=== PATIENT | male | born 1960 | race Caucasian/White ===

== ENCOUNTER 2020-03-14 18:23 | Outpatient (REF) | payer MEDICARE, MEDICAID, SELFPAY ==
--- NOTE | 2020-03-14 | MR_ITS ---
MRI BRAIN WITHOUT IV CONTRAST CLINICAL INFORMATION: Dementia with behavioral problems/disturbance. COMPARISON: Head CT 06/16/2007. TECHNIQUE: Multiplanar multisequence MR imaging of the brain was obtained without IV contrast. FINDINGS: There is no hydrocephalus, extra-axial surface collection, or herniation. No parenchymal signal abnormality. There is global cerebral volume loss. The major flow voids at the skull base are preserved. There is no acute infarct on diffusion-weighted imaging. There is no intracranial hemorrhage on the gradient recalled echo acquisition. The midline structures are normal. The cerebellar tonsils are normally positioned. The cerebellum and brainstem are normal. The craniocervical junction is normal. Osseous marrow signal intensity is homogenous. The visualized soft tissues are unremarkable. MR/MR head/brain wo con IMPRESSION: - No acute intracranial findings. - There is global cerebral volume loss.
== END 2020-03-14 18:24 | disposition home or self-care (01) ==
LOC: HO.MRI 18:23
PROVIDERS: Visit Provider Psychiatry & Neurology Neurology
DX: F03.91 Unspecified dementia, unspecified severity, with behavioral disturbance (principal)
CPT/HCPCS: 70551

== ENCOUNTER → 2021-09-16 09:43 | Outpatient (BNVA) | payer MEDICARE, MEDICAID, SELFPAY | PROVIDERS: PCP Internal Medicine; Visit Provider Nurse Practitioner Family | DX: G47.33 Obstructive sleep apnea (adult) (pediatric) (principal); R25.9 Unspecified abnormal involuntary movements; R51.9 Headache, unspecified; H93.11 Tinnitus, right ear; Z79.899 Other long term (current) drug therapy; Z99.89 Dependence on other enabling machines and devices | CPT/HCPCS: 99212 ==

== ENCOUNTER 2023-07-02 11:49 | Outpatient (AMB) | payer MEDICARE, MEDICAID, SELFPAY ==
--- NOTE | 2023-07-02 11:50 | MHC.OFFVIS ---
Intake Intake Visit Reasons: New prob-R/OParkinson-[facility] prog [phone] Allergies No Known Allergies [No Known Allergies*] Allergy (Unverified 09/16/21 09:49) Medication List - Last Reconciled 07/02/23 by DAVID Olmedo acetaminophen (Tylenol) 325 mg PO QID PRN albuterol sulfate 90 mcg/actuation 2 puffs inhalation Q6H PRN albuterol sulfate 90 mcg/actuation (ProAir HFA) 1 inh inhalation QID amlodipine 10 mg PO DAILY apixaban (Eliquis) 5 mg PO BID benztropine 0.5 mg PO BID 28 days budesonide-formoterol 160-4.5 mcg/actuation (Symbicort) 1 inh inhalation BID diclofenac potassium 50 mg PO BID fluticasone furoate-vilanterol 50-25 mcg/dose (Breo Ellipta) inhalation lisinopril 20 mg PO DAILY omeprazole 20 mg PO DAILY potassium chloride ER 20 mEq PO DAILY propranolol 10 mg PO BID 28 days risperidone (Risperdal) 1 mg PO BEDTIME sertraline 100 mg PO DAILY sertraline 50 mg PO DAILY HPI HPI Comments History of Present Illness Details 63-yr-old male presents for f/u televideo visit via [employer]. Patient accompanied by his technology applications teacher. Pt was last seen in September 2021. Pt denies any significant interval medical changes. Pt was having an increase in falls a few months ago, but is now doing better. Feels his movements are more smooth. He is currently doing PT, which he feels is helping. He does usually walk with a walker. His last fall, was 3 months ago- he states he hit a pothole while walking, he scraped his left elbow but no other injuries. Another fall- was in the kitchen- he was going too fast - shaking too much in his arms and hands, and just fell. The walker was on the side of him. He denied LOC or lightheadedness or dizziness. Another fall occurred in front of the house- was walking down the ramp w/ his wheeled walker, and started walking down too fast, and then came off the sidewalk, and fell. He thinks his feet were going to fast as he came down the ramp and transitioned to the side walk- this has not happened recently. [facility] Medical History (Updated 07/12/23 @ 14:41 by DAVID Olmedo) JACQUELYN on CPAP Family History Mother Cancer Social History Alcohol intake: never Patient Tobacco Use Status: Never used Tobacco Physical Exam Const General: cooperative and no acute distress Resp Effort & Inspection: normal respiratory effort and able to speak in complete sentences Neuro Other: Patient alert and oriented, responding appropriately to simple indirect questions. 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 Code(s): R25.9 - Unspecified abnormal involuntary movements (2) Falls: Code(s): W19.XXXA - Unspecified fall, initial encounter Plan Continue physical therapy. Continue using walker. Continue propranolol 10 mg b.i.d.. Continue Cogentin 0.5 mg b.i.d.. Future considerations: Carbidopa levodopa trial, [facility] Follow-up in 4 months in-person or sooner as needed. Telehealth Telehealth Location of provider rendering services: practice address Location of patient: address on file Patient Identification confirmed using: Name, : Yes Telehealth method: video Patient verbally consented to treatment: Yes Patient verbally consented to billing insurance company: Yes Patient informed of any privacy concerns related to visit: Yes Minutes spent on Phone/Video with Pt.: 22 Coding Level of Care Code Tele Est Pt Level 4 (53844) Diagnoses Abnormal involuntary movement R25.9 Falls W19.XXXA
== END 2023-07-02 14:40 | disposition home or self-care (01) ==
LOC: HO.HSMS 11:49
PROVIDERS: PCP Internal Medicine; Visit Provider Nurse Practitioner Family
DX: R25.9 Unspecified abnormal involuntary movements (principal); R29.6 Repeated falls
CPT/HCPCS: 99214

== ENCOUNTER → 2023-07-02 11:49 | Outpatient (BNVA) | payer MEDICARE, MEDICAID, SELFPAY | PROVIDERS: PCP Internal Medicine; Visit Provider Nurse Practitioner Family ==

== ENCOUNTER 2024-07-05 09:53 | Outpatient (REF) | payer MEDICARE, MEDICAID, SELFPAY ==
--- OUTSIDE RECORDS SUMMARY | 2024-07-05 12:14 | XMS_ITS | Clinical Summary ---
Author Organization [facility] Address [address] [place] [address] Phone Care Team Providers Care Outside Machinist Apprentice Name Role Phone Donal Jackson MD Primary Care Provider [phone] Encounters Date Type Department Care Team Description 06/02/2024 Telephone Thoracic Surgery - [place] [address] [facility] [address] [place] [phone] Jeannette Baird MA Chest CT (Patient's program director/music director called asking that patient have Chest CT and follow up in the office, he is lost to follow since 2022, ) from Last 3 Months Surgical History Surgery Date Site/Laterality Comments OTHER SURGICAL HISTORY 09/09/2018 Right PROCEDURE: [place] RMVL LUNG OTHER/THAN PNUMEC COMPLETION PNUMEC; COMMENT: [...] Documents on File Type Date Recorded 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
--- OUTSIDE RECORDS SUMMARY | 2024-07-05 12:14 | XMS_ITS | Patient Health Record ---
Author Organization [facility] Address [address] [place] [address] Care Team Providers Care Manager Manufacturing Name Role Phone DANIELITO PIKE Primary Care Provider Allergies No Known Allergies Reason For Referral No Information Medications Medication SIG (Take, Route, Frequency, Duration) Notes Start Date End Date Status ProAir HFA 108 (90 Base) MCG/ACT Inhalation Every 6 hours for 30 INHALE 2 PUFFS BY MOUTH EVERY 6 HOURS NEEDED 05/03/2012 Not-Taking Benadryl Allergy 25 MG 1 tablet Orally Once a day PRN FOR ITCHING 11/06/2021 Not-Taking Pantoprazole Sodium 40 MG TAKE 1 TABLET BY MOUTH ONCE DAILY IN THE MORNING. Active Lisinopril-hydroCHLOR Othiazide 20-12.5 MG TAKE 1 TABLET BY MOUTH ONCE DAILY IN THE MORNING. Active Potassium Chloride Elena ER 20 MEQ TAKE (1) TABLET BY MOUTH TWICE A DAY. Not-Taking Potassium Chloride ER 10 MEQ 1 tablet with food Orally Once a day for 90 Not-Taking Tamsulosin HCl 0.4 MG 1 capsule 30 minutes after the same meal each day Orally Once a day for 30 day(s) Active risperiDONE 0.5 MG 1 TAB Orally TAKE W/ 1MG AT BEDTIME ONCE A DAY TAKE W/ 1MG Active Symbicort 160-4.5 MCG/ACT 2 puffs Inhalation Twice a day Active Sertraline HCl 50 MG 1 tablet Orally TAKE Once a day W/ 100MG TAB TAKE W/ 100MG Active Dandruff Shampoo 1 % [address] of regular shampoo Externally 4X a Week Not-Taking Benztropine Mesylate 0.5 MG 1 tab orally Twice A Day Active Ventolin HFA 108 (90 Base) MCG/ACT 2 puffs as needed Inhalation every 6 hrs prn Not-Taking Spiriva HandiHaler 18 MCG Inhalation Daily for 30 INHALE CONTENTS OF 1 CAPSULE ONCE DAILY. 09/27/2013 Active Eliquis 5 MG 1 TAB Orally twice daily for 90 days Active Omeprazole 20 MG TAKE ONE CAPSULE BY MOUTH EVERY DAY Orally Not-Taking amLODIPine Besylate 10 MG TAKE 1 TABLET BY MOUTH ONCE DAILY IN THE MORNING. Active risperiDONE 1 MG 1 TAB orally TAKE W/ 0.5MG AT BEDTIME ONCE A DAY TAKE W/ 0.5MG Active Clotrimazole 1 % 1 application Externally Twice a day prn for 30 days Apply Thin Layer PRN Topically To Flarred/Red Vincent Of Body Active Tylenol 8 Hour Arthritis Pain 650 MG 1 TAB Orally EVERY 8 HRS PRN FOR HIP PAIN 05/02/2019 Not-Taking Acetaminophen 325 MG 2 TABS ORALLY TWICE A DAY FOR PAIN for 30 days 12/23/2022 Active Sertraline HCl 50 MG 1 tablet Orally Once a day changes to 50 in hosp, has been taking only 50 since 09/13/20 Not-Taking Desitin 13 % apply thick layer Externally as needed twice a day for reddened pascale-area, if symptoms persist longer than 3 days contact MD Active Phentermine HCl 37.5 MG 1 tablet Orally Once a day for 60 04/19/2018 Not-Taking Tylenol 325 MG 1-2 tabs Orally twice a day as needed for headache, body aches or fever greater than 100 degrees- DO NOT EXCEED 4 TABS DAILY 02/11/2022 Active Diclofenac Sodium 50 MG 1 tablet Orally Twice a day prn Not-Taking Milk of Magnesia 400 MG/5ML 5ML NEEDED Orally USE NEEDED DAILY Active Gabapentin 100 TAKE 3 CAPSULES BY MOUTH THREE TIMES DAILY for 90 Not-Taking Hydrocortisone 1 % 1 application Externally Twice a day PRN 02/11/2022 Active Gabapentin 100 MG 1 capsule Orally Three times a day Not-Taking Robitussin DM 100-10 MG/5ML 10 mL Orally every 4 hrs PRN FOR COUGH for 30 days Notify If Sx's Persist Longer Than 48 Hrs 02/13/2022 Active Ibuprofen 600 MG 1 tablet Orally every 6 hrs Not-Taking Ondansetron 4 MG 1 tablet on the tongue and allow to dissolve Orally every 6 hrs PRN for 30 days Notify MD If Sx's Persist Longer Than 48 Hrs Active Atorvastatin Calcium 20 MG TAKE (1) TABLET BY MOUTH EVERY EVENING. Active Propranolol HCl 10 MG TAKE 1 TABLET BY MOUTH TWICE DAILY take bp twice a day before taking med, if systolic is below 90, hold the med and contact MD. If heart rate is below60, hold and contact MD. Active LORazepam 1 MG 1 tablet at bedtime as needed Orally every 6 hrs PRN 07/15/2018 Not-Taking Ketoconazole 2 % 1 application Externally Twice a day Active Nasacort AQ 55 MCG/ACT Nasal for 0 08/01/2014 Not-Taking Bacitracin 500 UNIT/GM 1 application Externally USE NEEDED Active Gabapentin 300 MG 1 capsule Orally TID for 90 Not-Taking QUEtiapine Fumarate 100 MG 1 tablet Orally Once a day DANIELA CARRILLO, FISH TENDER- DR KINCAID Not-Taking Sertraline HCl 100 MG TAKE 1 TABLET BY MOUTH DAILY for 30 TAKE W/ 50MG Active oxyCODONE-Acetaminoph en 5-325 MG Oral for 0 TAKE 1 TABLET EVERY 4 TO 6 HOURS NEEDED FOR PAIN. 11/24/2013 Not-Taking Immunizations Vaccine Route Administration Date Status Comme nts Influenza (split), 3 yrs and above IM Intramuscular 02/02/[address] CHEN Pneumococcal polysaccharide PPV23 IM Intramuscular 05/18/2006 Administered Tdap IM Intramuscular 02/17/2019 Administered Social History Tobacco Use: Social History Observation [...] Problem Status W/U Status Risk Notes Problem Tinea cruris (415266965) Tinea cruris (B35.6) Active confirmed 06/16/22 Told to keep area dry Use desitin or diaper rash powder. 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) Diabetes mellitus due to underlying condition without complications (E08.9) Active confirmed On no meds Good control 06/11/21 will repeat labs before next appt 12/11/21 last stable, repeat labs today Problem Morbid obesity (disorder) (400343429) Morbid (severe) obesity due to excess calories (E66.01) Active confirmed Gained 8 lbs more since last visit Wants a medicine to curb his apetite Judah try phentermine for 2 months Problem 25067900 Other hyperlipidemia (E78.4) Active confirmed Problem Hyperlipidemia (62480271) Hyperlipidemia, unspecified (E78.5) Active confirmed Problem 48477141 Hypokalemia (E87.6) Active confirmed 07/16/22 Kelly m 3.3 in May Will recheck Has Lisinopril HCTZ Problem Sleep apnea (67524556) Sleep apnea, unspecified (G47.30) Active confirmed Problem Periodic limb movement disorder (237756545) Periodic limb movement disorder (G47.61) Active confirmed Problem 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) Active confirmed Problem Peripheral vascular disease (788663849) Peripheral vascular disease, unspecified (I73.9) Active confirmed Problem Chronic sinusitis (94469139) Chronic sinusitis, unspecified (J32.9) Active confirmed Problem Gastro-esophage al reflux disease without esophagitis (897760428) Gastro-esophageal reflux disease without esophagitis (K21.9) Active confirmed Problem Non-infective enteritis and colitis (362054956) Noninfective gastroenteritis and colitis, unspecified (K52.9) Active confirmed Problem Cough (69922746) Cough (R05) Active confirmed 09/28/20 pt sa ys he has cough sometimes, lung sounds clearm no adventitious sounds. Problem Dysphagia (37262077) Dysphagia, unspecified (R13.10) Active confirmed Problem Hyperglycemia (78354660) Hyperglycemia, unspecified (R73.9) Active confirmed Problem 433310848 Medicare annual wellness visit, subsequent (Z00.00) Active confirmed Problem 777297115 Gastroesophageal reflux disease without esophagitis (K21.9) Active confirmed Problem 910005372 Chronic anticoagulation (Z79.01) Active confirmed Started on Eliquis BID since by Dr Chen Chief Controller Station Dr Canales is working him up for [...] cbc 06/11/21 cbc wnl, continues on eliquis Problem 089979773 Bronchial asthma (J45.909) Active confirmed emphysema with FEV1 45% May 2108 Dr Chen 09/01/22 Has had thoracocentesis in past. Will treat with antibiotics and steroids and if not better will need chest XRay and follow up in ED Problem 38558652 Hyperlipidemia (E78.5) Active confirmed Problem 69202483 Migraine (G43.909) Active confirmed Stable No attac k for a long time Problem 92380186 JACQUELYN on CPAP (G47.33) Active confirmed Not using it in his new location Told he should use it Problem Fatty liver (545677838) Fatty liver (K76.0) Active confirmed Problem 32102890 Major depression , recurrent, chronic (F33.9) Active confirmed Problem 039873857 Thyroid nodule (E04.1) Active confirmed 12/05/[address] [facility] pt asymptomatic, without complaints or problems. Noted again by Dr Gagnon and pt having multiple specialists and complications last few months, will send for thyroid U/S 01/02/21 showed nodules and cysts will send to interventional radiology for biopsy 03/11/21 guided U/S with biopsy for cyst and nodules done . Report of biopsy not in chart. 06/11/21 no report, did note no change in nodules. will call for results 09/11/21 report back benign Problem 50222584 Hyperglycemia (R73.9) Active confirmed Problem 44270642 Essential hypertension (I10) Active confirmed Stable Problem 259957501 Recurrent falls (R29.6) Active confirmed Problem 74889754 Rectal bleed (K62.5) Active confirmed 02/13/22 Probabl y from starining Problem Renal mass (361990371) Renal mass (N28.89) Active confirmed 12/11/21 last appt 10/2021 mild increase, per dr cope will monitor U/s every 6 months Problem 842052207 Obesity (BMI 35.0-39.9 without comorbidity) (E66.9) Active confirmed Problem 213727258 Colon, diverticulosis (K57.30) Active confirmed Problem 27851607 Chronic dermatitis (L30.9) Active confirmed Problem 68921837 Ureteral stricture, left (N13.5) Active confirmed Problem 30117022 Mild mental retardation (F70) Active confirmed Sees Psychiatrist Daniela Carrillo at [address] [place] [address] or [facility] 09/11/[address] Carrillo monthly Problem 69641070 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 pt was hosp 09/13/20 for severe tremors, was noted to high high ammonia levels and given x1 dose of lactulose, US showed hepatomegaly and fatty liver also renal mass. pt has [facility] with neurology and urology coming up. will order CT scan of kidney. will also recheck electrolytes liver panel, and ammonia levels. will refer to hepatology for enlarged liver. 02/13/22 Reviewed hospital records HadCT abdomen and work up was inconclusive for the left LLQ pain which is slip tender Vital are stable Will do a CBC and retic count Problem 076648382 History of obesity (Z86.39) Active confirmed 04/08/23 We ighed 230 lbs Lost weight by portion control Now weighs 182 lbs Problem 73364399 Coarse tremors (G25.2) Active confirmed Has more right arm tremor Sees Dr [...] longer on gabapentin, stopped permanently per neurology Problem 73488911 Moderate dementi a without behavioral disturbance (F03.90) Active confirmed Having sudden memeory issues. Used to remember peopes name , dates , events Unable to do. Will send him for neurological evaluation for reversible causes of dementia. Also on psychiatrc medications. 07/24/20- Saw Dr Murcia 03/06 to have tests done and to have follow up stan[place] after tests, educated medicare sales representative to call and make follow up stan[place] Problem 13040790 Tremors of nervous system (R25.1) Active confirmed 12/13/20 arr wit h significant tremors, per nallely did not take medication until 11 when she got there, throughout [place] tremors improving and upon d.c almost gone Problem 04594663 Bilateral impacted cerumen (H61.23) Active confirmed Told to use debrox drops and come for irrigation Problem 54524797 Parkinson diseas e (G20) Active confirmed 12/22/22 Has tremors of hands, clasp knife rigidity of elbow, small shuffling gait Suspect parkinsonism . Had repeated falls 3 times in a month Will refer to neurologist for evaluation Problem 809848665 Paranoia (F22) Active confirmed Getting more paranoid . Will restart risperdal. On Seroquel 150 mg Problem Acute bronchitis (30411915) Bronchitis with bronchospasm (J20.9) Active confirmed Problem Macular erythematous rash (L53.8) Active confirmed 11/05/21 Has bee n resolving Mild trace seen on right upper arm Left thigh is clear No treatment needed Told to use Benadryl if there is itching or as a trial Problem 844381510 Swelling of left ankle joint (M25.472) Active confirmed From a fall 2 weeks ago. 04/09/18. 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 Had biopsy by Verenice Peacock Had Davinci RLL and middle lobe bilobectomy done by Dr Joslyn Gagnon on 09/10/18 at [facility] Problem 019412133 Hx of pulmonary embolus (Z86.711) Active confirmed Problem 930177324 S/P thoracentesi s (Z98.890) Active confirmed Has residual fluid left Will be getting it removed by Dr Chen Problem 71224627 Single subsegmental pulmonary embolism without acute cor pulmonale (I26.93) Active confirmed Diagnosed by Dr Erickson in January 2019 Problem 691158175882 Acute deep vein thrombosis (DVT) of calf muscle vein of left lower extremity (I82.462) Active confirmed DVT confirmed b u US ofleft leg Involve gastrocnemius vein greater amando 5 cm. Put on Eliqius for a month There is no trigger cause for the DVT He has hx of endobronchiol carcinoid tumor and underwent middle bronchus lobectomy last year This could be a paraneoplastic syndrome I will refer him to see his belt cleaner to decide how long he should be on Eliquis and wherher he warrants further investigation for the recurrence of his tumor. Problem Gait difficulty (41971886) Gait difficulty (R26.9) Active confirmed ongoing, new small animal caretaker notices deconditioned. will refer to PT 12/11/21 doing well, uses cane, no falls, active at shelter 08/12 care Plan Of Treatment Pending Test Test Name Order Date Hemoglobin A1c 06/04/2022 Hemoglobin A1c 04/08/2023 Urinalysis, Complete 06/04/2022 Urinalysis, Complete 12/22/2022 Lipid Panel 06/04/2022 Lipid Panel 04/08/2023 Lipid Panel 10/07/2022 Chem-Comprehensive 12/22/2022 Chem-Comprehensive 10/07/2022 Chem-Comprehensive 06/04/2022 Chem-Comprehensive 04/08/2023 Urine Culture and Sensitivity 12/22/2022 Chem 7 (BUN, Cr, Lytes, Glu) 07/16/2022 Ultrasound : Thyroid Sonography B-Scan 0 12/05/2020 LIVER PANEL 09/28/2020 xray LS spine 06/04/2022 HgA1C 10/07/2022 Future Test Test Name Order Date Urinalysis, Complete 12/06/2015 Lipid Panel 12/06/2015 CBC 12/06/2015 Chem-Comprehensive 12/06/2015 Urinalysis, Complete 06/01/2016 Lipid Panel 06/01/2016 CBC 06/01/2016 Chem-Comprehensive 06/01/2016 Hemoglobin A1c 12/29/2017 Lipid Panel 12/29/2017 CBC WITH AUTO DIFF 12/29/2017 COMPREHENSIVE METABOLIC PANEL 12/29/2017 MICROALB/CREAT RATIO, RANDOM 12/29/2017 MICROALB/CREAT RATIO, RANDOM 04/06/2018 CBC WITH AUTO DIFF 01/16/2022 Chem-Comprehensive 03/04/2023 CBC 03/04/2023 MICROALB/CREAT RATIO, RANDOM 03/04/2023 HEMOGLOBIN A1C 03/04/2023 Insurance Providers Payer Name Payer Address Payer Phone Subscriber Number Group Number Insured Name Patient Relationship to Insured Coverage Start Date Coverage End Date Medicare of [facility] abisai Yair [address] [place] [phone] [id number] Nicolas Becker Self - patient is the insured Medicaid of [facility] [address] [place] [address] [phone] [id number] Nicolas Becker Self - patient is the insured Medical (General) History Medical History History ICD Code COPD with lung nodule in Rig ht lower lung Had CT scan Seen by Dr Chen and bronchoscopy Lower extremity neuropathy severe On mary apentin GERD Had EGD by DR Castro on 06/18/[address] Castro did col onoscopy on 06/18/18 No polyps Obstructive Sleep Apnea Has CPAP Non com pliant Involuntary movement, multif actorial, neuroleptic exposure Put on Cogentin 0.5 mg 2 tab in am and 1 pm in past Obesity weighs 253 lbs. Left Kidney obstructive uropathy Has a s tent put in by Dr Coep Right lower lobe lobectomy for carcinoid timor 2018 Exophytic right renal mass f ound incidentally on MRI. saw Dr Canales , oncologist on 01/23/21 He opined urology consult Saw Dr Cope 02/05/21 Offered Partial nephrectomy versus watching FU in 3 months Pulmonary Embolism On Eliquis since 2019 Other alteration of consciousness 780.09 Surgical History Surgery Date(Month/Year) Stent panted in Left kidney Dr Anatoliy Johnson ees PA Carla Santos 2017 Lap Cholcystectomy 2013 Resection of carcinoid tumor from right lowe bronchus 2019
[2024-07-05 17:58] LABS: Appearance Urine Clear; Color Urine Yellow; Glucose Urine UA Negative (Negative); Leukocyte Esterase Urine Negative (Negative); Nitrite Urine Negative (Negative); PH 5.5 (5.0-9.0); Urine Blood Negative (Negative); Urine Ketones Negative (Negative); Urine Protein Negative (Neg-Trace)
== END 2024-07-05 09:54 | disposition home or self-care (01) ==
LOC: HO.HKASLDS 09:53
PROVIDERS: PCP Internal Medicine; Visit Provider Nurse Practitioner Family
DX: D64.9 Anemia, unspecified (principal); R32 Unspecified urinary incontinence; R82.998 Other abnormal findings in urine; R25.9 Unspecified abnormal involuntary movements; R51.9 Headache, unspecified; H53.2 Diplopia; R63.4 Abnormal weight loss; R06.02 Shortness of breath
CPT/HCPCS: 81003; 99212

== ENCOUNTER 2024-07-05 09:53 | Outpatient (AMB) | payer MEDICARE, MEDICAID, SELFPAY ==
[2024-07-05 10:02] VITALS: BP 110/80; BMI 26.5
--- NOTE | 2024-07-05 10:02 | MHC.OFFVIS ---
Vital Signs 07/05/24 10:02 Height 5 ft 8 in Weight 174 lb 6 oz BMI 26.5 BP 110/80 Intake Visit Reasons: f/u Bulk Station Agent Required: No Allergies No Known Allergies [No Known Allergies*] Allergy (Verified 07/05/24 10:11) Medication List - Last Reconciled 07/05/24 by DAVID Olmedo acetaminophen (Tylenol) 325 mg PO QID PRN albuterol sulfate 90 mcg/actuation 2 puffs inhalation Q6H PRN albuterol sulfate 90 mcg/actuation (ProAir HFA) 1 inh inhalation QID amlodipine 10 mg PO DAILY apixaban (Eliquis) 5 mg PO BID benztropine 0.5 mg PO BID 28 days budesonide-formoterol 160-4.5 mcg/actuation (Symbicort) 1 inh inhalation BID clotrimazole-betamethasone 1-0.05 % 1 appl topical BID diclofenac potassium 50 mg PO BID fluticasone furoate-vilanterol 50-25 mcg/dose (Breo Ellipta) inhalation hydrocortisone 2.5% 1 appl topical BID PRN lisinopril 20 mg PO DAILY omeprazole 20 mg PO DAILY ondansetron HCl 4 mg PO Q8H pantoprazole DR 40 mg PO DAILY potassium chloride ER 20 mEq PO DAILY propranolol 10 mg PO BID 28 days risperidone (Risperdal) 1 mg PO BEDTIME sertraline 50 mg PO DAILY sertraline 50 mg PO DAILY sertraline 100 mg PO DAILY tamsulosin 0.4 mg PO BEDTIME zinc oxide 13% (Desitin Daily Defense) 1 appl topical BID-QID PRN HPI Comments Details: 64-yr-old male presents for f/u of movement d/o. Patient accompanied by his long-term staff, and long-term nurse joints via phone. Pt was last seen in Jun 2023. Patient's long-term staff member reports the patient has several times in the last few years. They stated they did not have patient's full medical history- were unaware of who many of his healthcare providers are. They are unaware of any significant interval medical history changes. However, they report that he has had an unintentional weight loss despite having a good appetite and eating well. Per our records, patient has lost 60lbs in past 2 years. He is having more SOB on exertion- which is taking him longer to recover from. They are unsure when patient last saw his PCP. Patient states he has not seen Dr. Canales in a long time- in his not sure if he was supposed to be having follow-up are not He can be shaky at times, more so when focusing on something or trying to pick something up. The tremor does not interfere with his ability to eat or do his ADLs. Denies any recent falls. He feels his gait is stable/steady when he uses his walker. They also report the patient is having increased forgetfulness, both with short and long-term memory. Patient endorses this as well. He states he is having frequent headaches- almost daily, described as a pain. He states this is associated with double vision. Denies associated light sensitivity or sound sensitivity. Uses Tylenol, which does help. Endorses liu nocturnal urinary incontinence, and ?foamy urine ?. He denies fevers, night sweats, PFSH Medical History (Updated 07/05/24 @ 11:03 by DAVID Olmedo) History of lung cancer Anemia JACQUELYN on CPAP Family History Mother Cancer Social History Alcohol intake: never Patient Tobacco Use Status: Never used Tobacco Physical Exam Vital Signs: Last Vital Signs BP 110/80 07/05/24 10:02 BMI result Body Mass Index 26.5 Const General: cooperative and no acute distress Resp Effort & Inspection: normal respiratory effort and able to speak in complete sentences Neuro Other: Cognition- A&O, developmental delay, responds appropriately, some STM and LTM lapses. For instance, when asked where his PCP was located he stated ?[id number]?- which is the correct building number 4 his PCP, however patient could not elaborate further. BUE mild postural and kinetic tremor. Fine finger movements- BUE decreased more so on left BUE rigidity. Foot taps- BUE decreased more so on left Gait- stands easily, wide based, short steps, steady w/ 4 wheeled walker. 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 Code(s): R25.9 - Unspecified abnormal involuntary movements Category: Medical (2) Headache: Code(s): R51.9 - Headache, unspecified Category: Medical (3) Urinary incontinence: Code(s): R32 - Unspecified urinary incontinence Category: Medical (4) Diplopia: Code(s): H53.2 - Diplopia Category: Medical (5) Unintentional weight loss: Code(s): R63.4 - Abnormal weight loss Category: Medical (6) SOBOE (shortness of breath on exertion): Code(s): R06.02 - Shortness of breath Category: Medical Plan For unintentional weight loss, frequent headache, new report of diplopia, and cognitive difficulties: List of patient's current medical care team shared with long-term staff. prison staff will make follow-up appointment with patient's PCP. We will request follow-up with Dr. Canales. Check labs for common etiologies Brain MRI with and without contrast to assess for secondary etiologies. Start riboflavin 400 mg q.a.m. and magnesium oxide 400 mg q.h.s. for headache prevention. May continue Tylenol 650-1000 mg every 4-6 hours as needed. Avoid NSAIDs due to Eliquis use. For tremor, gait difficulties, and history of falls: Continue using walker. Continue propranolol 10 mg b.i.d.. Continue Cogentin 0.5 mg b.i.d.. Future considerations: Carbidopa levodopa trial, Maryjo Will follow-up upon review of above and patient to follow-up in clinic in 6 months or sooner prn. Orders: Orders Complete Blood Count Auto Diff Today D64.9 - Anemia, unspecified, H53.2 - Diplopia, R32 - Unspecified urinary incontinence, R41.89 - Other symptoms and signs involving cognitive functions and awareness, R51.9 - Headache, unspecified, W19.XXXA - Unspecified fall, initial encounter Comprehensive Met. Panel Today D64.9 - Anemia, unspecified, H53.2 - Diplopia, R32 - Unspecified urinary incontinence, R41.89 - Other symptoms and signs involving cognitive functions and awareness, R51.9 - Headache, unspecified, W19.XXXA - Unspecified fall, initial encounter Vitamin B12 and Folate Today D64.9 - Anemia, unspecified, H53.2 - Diplopia, R32 - Unspecified urinary incontinence, R41.89 - Other symptoms and signs involving cognitive functions and awareness, R51.9 - Headache, unspecified, W19.XXXA - Unspecified fall, initial encounter Homocysteine Today D64.9 - Anemia, unspecified, H53.2 - Diplopia, R32 - Unspecified urinary incontinence, R41.89 - Other symptoms and signs involving cognitive functions and awareness, R51.9 - Headache, unspecified, W19.XXXA - Unspecified fall, initial encounter Lyme IgG/IgM w/reflex to WB Today D64.9 - Anemia, unspecified, H53.2 - Diplopia, R32 - Unspecified urinary incontinence, R41.89 - Other symptoms and signs involving cognitive functions and awareness, R51.9 - Headache, unspecified, W19.XXXA - Unspecified fall, initial encounter Erythrocyte Sedimentation Rate Today D64.9 - Anemia, unspecified, H53.2 - Diplopia, R32 - Unspecified urinary incontinence, R41.89 - Other symptoms and signs involving cognitive functions and awareness, R51.9 - Headache, unspecified, W19.XXXA - Unspecified fall, initial encounter UA CC w/rflx Micro + Cult Today R32 - Unspecified urinary incontinence, R82.998 - Other abnormal findings in urine Methylmalonic Acid Today D64.9 - Anemia, unspecified, H53.2 - Diplopia, R32 - Unspecified urinary incontinence, R41.89 - Other symptoms and signs involving cognitive functions and awareness, R51.9 - Headache, unspecified, W19.XXXA - Unspecified fall, initial encounter Syphilis Screen Today D64.9 - Anemia, unspecified, H53.2 - Diplopia, R32 - Unspecified urinary incontinence, R41.89 - Other symptoms and signs involving cognitive functions and awareness, R51.9 - Headache, unspecified, W19.XXXA - Unspecified fall, initial encounter TSH reflex Free T4 Today D64.9 - Anemia, unspecified, H53.2 - Diplopia, R32 - Unspecified urinary incontinence, R41.89 - Other symptoms and signs involving cognitive functions and awareness, R51.9 - Headache, unspecified, W19.XXXA - Unspecified fall, initial encounter Hemoglobin A1c Today D64.9 - Anemia, unspecified, H53.2 - Diplopia, R32 - Unspecified urinary incontinence, R41.89 - Other symptoms and signs involving cognitive functions and awareness, R51.9 - Headache, unspecified, W19.XXXA - Unspecified fall, initial encounter CRP High Sensitivity Today D64.9 - Anemia, unspecified, H53.2 - Diplopia, R32 - Unspecified urinary incontinence, R41.89 - Other symptoms and signs involving cognitive functions and awareness, R51.9 - Headache, unspecified, W19.XXXA - Unspecified fall, initial encounter MR head/brain wo/w con Today H53.2 - Diplopia, R32 - Unspecified urinary incontinence, R51.9 - Headache, unspecified, Z85.118 - Personal history of other malignant neoplasm of bronchus and lung Referrals Hematology & Oncology Referral R06.02 - Shortness of breath, R63.4 - Abnormal weight loss, Z85.118 - Personal history of other malignant neoplasm of bronchus and lung Medications: New magnesium oxide may hold for loose stools 400 mg PO BEDTIME 30 tabs 6RF 30 days riboflavin (vitamin B2) 400 mg PO DAILY 30 tabs 6RF 30 days Coding Level of Care Code Est Pt Level 4 (14957) Diagnoses Abnormal involuntary movement R25.9 Headache R51.9 Urinary incontinence R32 Diplopia H53.2 Unintentional weight loss R63.4 SOBOE (shortness of breath on exertion) R06.02
--- OUTSIDE RECORDS SUMMARY | 2024-07-05 10:38 | XMS_ITS ---
Author Organization [facility] Address [address] [place] [address] Care Team Providers Care Balancing Machine Set Up Worker Name Role Phone DONAL JACKSON Primary Care Provider Allergies No Known Allergies Results Component Value Reference Range Notes CBC Reviewed date:04/08/2023 03:39:31 PM Interpretation: Performing Lab: Notes/Report: Original Ordering Provider: DONAL JACKSON MD [employer], a member of [address] [address] Fitter Machinist - Deana Castro MD WBC 5.7 4.8-10.8 x10-3/uL RBC 4.3 4.5-5.5 x10-6/uL HEMOGLOBIN 12.9 13.5-17.5 g/dL HEMATOCRIT 39.9 42-54 % MCV 93.4 79-98 fL MCH 30.2 27-32 pg MCHC 32.3 32-37 g/dL RDW 13.8 11-15 % PLT COUNT 180 130-400 x10-3/uL MEAN PLATELET VOLUME 10.0 7-11 fL NRBC % AUTO 0.0 <1 % NRBC # AUTO 0.00 <0.1 x10-3/uL MICROALB/CREAT RATIO, RANDOM Reviewed date:04/08/2023 06:08:10 PM Interpretation: Performing Lab: Notes/Report: Original Ordering Provider: DONAL JACKSON MD [employer], a member of [address] [address] Fitter Machinist - Deana Castro MD MICROALBUMIN, RANDOM 20.2 0.0-29.0 mg/L MICROALB/CRE RATIO RANDOM 15.5 0.0-30.0 mg/G CREATININE, RANDOM URINE 130 REASON FOR VISIT 3 Month Follow-Up:, Last Labs:, EKG Needed @ Next Annual Visit Medications Medication SIG (Take, Route, Frequency, Duration) Notes Start Date End Date Status Dandruff Shampoo 1 % [address] of regular shampoo Externally 4X a Week Not-Taking Ventolin HFA 108 (90 Base) MCG/ACT 2 puffs as needed Inhalation every 6 hrs prn Not-Taking Omeprazole 20 MG TAKE ONE CAPSULE BY MOUTH EVERY DAY Orally Not-Taking Tylenol 8 Hour Arthritis Pain 650 MG 1 TAB Orally EVERY 8 HRS PRN FOR HIP PAIN 05/02/2019 Not-Taking Sertraline HCl 50 MG 1 tablet Orally Once a day changes to 50 in hosp, has been taking only 50 since 09/13/20 Not-Taking Phentermine HCl 37.5 MG 1 tablet Orally Once a day for 60 04/19/2018 Not-Taking Diclofenac Sodium 50 MG 1 tablet Orally Twice a day prn Not-Taking Gabapentin 100 TAKE 3 CAPSULES BY MOUTH THREE TIMES DAILY for 90 Not-Taking Gabapentin 100 MG 1 capsule Orally Three times a day Not-Taking Ibuprofen 600 MG 1 tablet Orally every 6 hrs Not-Taking LORazepam 1 MG 1 tablet at bedtime as needed Orally every 6 hrs PRN 07/15/2018 Not-Taking Nasacort AQ 55 MCG/ACT Nasal for 0 08/01/2014 Not-Taking Gabapentin 300 MG 1 capsule Orally TID for 90 Not-Taking QUEtiapine Fumarate 100 MG 1 tablet Orally Once a day DANIELA CARRILLO LUNCHROOM MONITOR- DR KINCAID Not-Taking oxyCODONE-Acetaminoph en 5-325 MG Oral for 0 TAKE 1 TABLET EVERY 4 TO 6 HOURS NEEDED FOR PAIN. 11/24/2013 Not-Taking ProAir HFA 108 (90 Base) MCG/ACT Inhalation Every 6 hours for 30 INHALE 2 PUFFS BY MOUTH EVERY 6 HOURS NEEDED 05/03/2012 Not-Taking Benadryl Allergy 25 MG 1 tablet Orally Once a day PRN FOR ITCHING 11/06/2021 Not-Taking Lisinopril-hydroCHLOR Othiazide 20-12.5 MG TAKE 1 TABLET BY MOUTH ONCE DAILY IN THE MORNING. Active Potassium Chloride Elena ER 20 MEQ TAKE (1) TABLET BY MOUTH TWICE A DAY. Not-Taking Potassium Chloride ER 10 MEQ 1 tablet with food Orally Once a day for 90 Not-Taking Pantoprazole Sodium 40 MG TAKE 1 TABLET BY MOUTH ONCE DAILY IN THE MORNING. Active Propranolol HCl 10 MG TAKE 1 TABLET BY MOUTH TWICE DAILY take bp twice a day before taking med, if systolic is below 90, hold the med and contact MD. If heart rate is below 60, hold and contact MD. Active amLODIPine Besylate 10 MG TAKE 1 TABLET BY MOUTH ONCE DAILY IN THE MORNING. Active Clotrimazole 1 % 1 application Externally Twice a day prn for 30 days Apply Thin Layer PRN Topically To Flarred/Red Vincent Of Body Active Acetaminophen 325 MG 2 TABS ORALLY TWICE A DAY FOR PAIN for 30 days 12/23/2022 Active Desitin 13 % apply thick layer Externally as needed twice a day for reddened pascale-area, if symptoms persist longer than 3 days contact MD Active Tylenol 325 MG 1-2 tabs Orally twice a day as needed for headache, body aches or fever greater than 100 degrees- DO NOT EXCEED 4 TABS DAILY 02/11/2022 Active Robitussin DM 100-10 MG/5ML 10 mL Orally every 4 hrs PRN FOR COUGH for 30 days Notify MD If Sx's Persist Longer Than 48 Hrs 02/13/2022 Active Atorvastatin Calcium 20 MG TAKE (1) TABLET BY MOUTH EVERY EVENING. Active Ondansetron 4 MG 1 tablet on the tongue and allow to dissolve Orally every 6 hrs PRN for 30 days Notify MD If Sx's Persist Longer Than 48 Hrs Active Milk of Magnesia 400 MG/5ML 5ML NEEDED Orally USE NEEDED DAILY Active Hydrocortisone 1 % 1 application Externally Twice a day PRN 02/11/2022 Active Ketoconazole 2 % 1 application Externally Twice a day Active Bacitracin 500 UNIT/GM 1 application Externally USE NEEDED Active Sertraline HCl 100 MG TAKE 1 TABLET BY MOUTH DAILY for 30 TAKE W/ 50MG Active Sertraline HCl 50 MG 1 tablet Orally TAKE Once a day W/ 100MG TAB TAKE W/ 100MG Active Benztropine Mesylate 0.5 MG 1 tab orally Twice A Day Active Spiriva HandiHaler 18 MCG Inhalation Daily for 30 INHALE CONTENTS OF 1 CAPSULE ONCE DAILY. 09/27/2013 Active Eliquis 5 MG 1 TAB Orally twice daily for 90 days Active risperiDONE 1 MG 1 TAB orally TAKE W/ 0.5MG AT BEDTIME ONCE A DAY TAKE W/ 0.5MG Active Tamsulosin HCl 0.4 MG 1 capsule 30 minutes after the same meal each day Orally Once a day for 30 day(s) Active risperiDONE 0.5 MG 1 TAB Orally TAKE W/ 1MG AT BEDTIME ONCE A DAY TAKE W/ 1MG Active Symbicort 160-4.5 MCG/ACT 2 puffs Inhalation Twice a day Active Social History Tobacco Use: Social History Observation Description Date Details (start date - stop date) Never Smoker NA - NA Tobacco Use/Smoking Question Answer Notes Are you a nonsmoker Additional Findings: Tobacco Non-User Current no n-smoker Alcohol Screen (Audit-C) Question Answer Notes Did you have a drink containing alcohol in the p ast year? No Points 0 Interpretation Negative Tobacco use other than smoking: Question Answer Notes Are you an other tobacco user? No Problems Problem Type SNOMED Code ICD Code Onset Dates Problem Status W/U Status Risk Notes Problem 351694349 Hx of pulmonary embolus (Z86.711) Active confirmed Problem 388911074 History of obesity (Z86.39) Active confirmed 04/08/23 Weighed 230 lbs Lost weight by portion control Now weighs 182 lbs Vital Signs Height 68.1101 in 04/08/2023 Encounters Encounter Location Date Provider Diagnosis [address] [place] [address] 04/08/2023 DONAL JACKSON Parkinson disease G2 0 ; Diabetes mellitus due to underlying condition without complications E08.9 ; Essential hypertension I10 ; Mild mental retardation F70 ; Coarse tremors G25.2 ; Renal mass N28.89 ; JACQUELYN on CPAP G47.33 ; Gait difficulty R26.9 ; Chronic anticoagulation Z79.01 ; Hx of pulmonary embolus Z86.711 and History of obesity Z86.39 Assessments Encounter Date Diagnosis (ICD Code) Assessment Notes Treatment Notes Treatment Clinical Notes Section Notes 04/08/2023 Parkinson disease (ICD-10 - G20) 12/22/22 Has tremors of hands, clasp knife rigidity of elbow, small shuffling gait Suspect parkinsonism . 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) Sees Psychiatrist Daniela Carrillo at [address] [place] [address] at [facility] or [facility] 09/11/[address] Carrillo monthly 04/08/2023 Coarse tremors (ICD-10 - G25.2) Has more right arm tremor Sees Dr Diane Meier Has appt in October 29 09/28/20 went to hosp for severe tremors, high ammonia given lactulose x1, gabapentin stopped since 09/13, will continue to hold until pt sees neurology, no tremors noted on exam 11/22/20 improved, slight 01/02/21 tremor more pronounced and walking difficulty with prolonged movement. Upon sitting during appointment and dc walking was steady and tremors decreased. no longer on gabapentin, stopped permanently per neurology 04/08/2023 Renal mass (ICD-10 - N28.89) 12/11/21 last appt 10/2021 mild increase, per dr cope will monitor U/s every 6 months 04/08/2023 JACQUELYN on CPAP (ICD-10 - G47.33) 04/08/2023 Gait difficulty (ICD-10 - R26.9) ongoing, new warning analyst notices deconditioned. will refer to PT 12/11/21 doing well, uses cane, no falls, active [facility]12 care 04/08/2023 Chronic anticoagulation (ICD-10 - Z79.01) Started on Eliquis BID since by Dr Chen Generation Mechanic Helper Dr Canales is working him up for coagulopathy 05/30/19 As it was a provoked lung embolism and work up for coagulopathy is negative I will stop the Eliquis today as advised by Dr Canales 03/05/20 Has a left leg DVT after a fall. Put on Eliquis in ED . I will consider keeping him on it for a long time 12/05/20 on chronic anticoagulation, educated to stop ibuprofen, will repeat cbc 06/11/21 cbc wnl, continues on eliquis 04/08/2023 Hx of pulmonary embolus (ICD-10 - Z86.711) 04/08/2023 History of obesity (ICD-10 - Z86.39) 04/08/23 Weighed 230 lbs Lost weight by portion control Now weighs 182 lbs Plan Of Treatment Pending Test Test Name Order Date Hemoglobin A1c 04/08/2023 Lipid Panel 04/08/2023 Chem-Comprehensive 04/08/2023 Next Appt Details Follow Up: 4 Months, Reason: Progress Notes * Nicolas YOUSIF DDOB:1959 (63 yo M)Acc No.[id number]:04/08/2023 Progress Notes Patient:?Nicolas Yousif Provider:?Donal Jackson MD :1960???Age:63 Y???Sex:Male Brando e:04/08/2023 Address:[address] [place] [address] , [facility] Subjective: * Chief Complaints: * ???3 Month Follow-Up:Last La bs: EKG Needed @ Next Annual Visit * HPI: ???Constitutional:? 04/08/23 Came with Humaira Chavez his DCP (Direct Care Provider) since October . Vera has left. Looking skinny Wearing a cap and colored strands of beads Has a duval moustache and boothe. Using a walker No more falls. No complaints. Goes to [facility] for PT in [place] to strengthen his leg muscles and gait. Going twice a week. ?No new complaints. ?12/22/22 Came with Vera Chu Using a walker .Fell in the kitchen while turning . Fell on the floor Bruised his left elbow . Kelvin called 911 and taken to [facility] in Had Xray of arm, and was sent home ?12/02/22 Came with Vera Chu Looking well. No falls No new complaints. Saw Dr Cope for his hematuria and right renal mass which is stable. Told him not to worry. Meds reviewed and reconciled Sighned forms ?10/07/22 Came with Vera Chu .Regular follow up visit. Went to a Day Program and they noticed swelling of left ankle . He said he is having slight pain in left leg for past 1 week. No trauma, no fall. No sob. palpitaion. No change in medications . Uses a walker for past week Normally using a cane . States he feels unstable. ?09/01/22 Havong a cold for 2 weeks Now having severe cough with yellow phlegm Chest hurts from coughing . ?Will give ABX and cough meds ?07/16/22 Here for his MWV Came with a new Fiber Optic Central Office Installer of his residence Vera Chu [phone] Joined 03/18/22 Was working for [employer] for 20 years. Has HCP with Jeannettebre Yousif, his sister [phone] [place] [address] 66 yr single . Has a younger sister Padma([employer] at [address] [place] [address] in [place] 60 yr single. Given MOLST forms today and filled out in presence of Vera ?06/16/22 Came with Marya Humphries with a dog [phone]). Has a rash on his armpits which is irtating and itches. Give a cream by Rosario and it helped ?06/04/22 Came with Royce Mcclelland ?Comes in wearing a hat and beads.Has a small goatee. Plans to take him to [place] for a vacation. ?Meds reviewed and reconciled.No new complaints except back pain intermittent ?02/13/22Came with Lydia. Whitaker had noticed some blood in his stool this morning and she brought him in for eval. I told them he is on Eliquis and has hx of hemorrhoids and can have intermittent bleeding. Was in hospital with abdominal pain at [facility] Was there for 5 days and was investigated and released ?12/11/21 Here with Lydia on of pt DSPs. ?Medications reviewed and reconciled. No new complaints. ?In interm from last regular follow up pt has seen Urology Dr Cope they are monitoring mass with ultrasound every [address] Chen for sleep apnea copd and thyroid nodule (biopsy benign) . saw neurology SAFETY MANAGER and no changes to medication. Optometry beginning of september no notes, got new glasses. follows up with oncology dr canales in january for hx of carcinoid tumor. Dr Daniela Carrillo psychiatry every 6 months had an appt last week, no changes to medications. 11/05/21 Urgent visit to evaluate rash on both upper arm . Noticed it yesterday Doesnt itch. Came with the therapy administrative assistant of his program , [facility] . Royce Mcclelland ([phone]) He was moved from shared living to a 24 hour superhoused housing in January 2021. Has 2 room mates with him Reason for the falling and not compliant with his medications. No change in meds. Had been seeing Rosario and was referred for PT and did not follow through. SeeRen Chen and Dr Cope (renal mass) amd Dr Gisela Carrillo psychiatrist ?09/11/21 Medications reviewed and reconciled ?Stays active, goes on outings, goes bowling. ?Optometry 09/16/21 ?Pulmonology Dr chen saw last week, ordered repeat CT scan of chest to rule out new carcinoid tumor. f/u. no issues. seeing dr chen 09/17/21 called today 09/11/21 about renal mass noted on ct scan. we are already aware ?Urology Dr Cope for renal mass, less then 4cm continues to be 3.2cm based on Ct scan from dr chen. MRI scheduled in October from last note from urology. appears slow growing and not needed to be removed at this time ?Dr Canales oncology, has f/u january for f/u hx carcinoid tumor and removal. he also noted renal mass and pt has seen urology which is following it. only needs to see Ally if indicated for another reason other then lung tumor ?Thyroid nodules noted on ct scan last year, pt had U/S and biopsy, the biopsy did come back as benign. cold nodule biopsy needed to be completed. no need for follow up ?Pt was also seen in the ER last month to rule out diverticulitis from pain in stomach associated wtih fever and chills. CT scan at that time was normal other then known renal mass, was noted to have gastroenteritis and send home on anti-nausea medications. ?Dr barron dermatology for dermatitis and actinic keratosis, last note from 01/2021 f/u in 6 months should have seen. ?Neurology Dr Meier last seen 10/2020. ?Dr Gisela Carrillo seeing psychiatry, via zoom last month, every 6 months. ?03/11/21 Came today with Ana Maria Samaniego and new Shoemaker Apprentice Tirso Low [phone] Chen and he sent not to Dr Cope stating his Eliquis shouldnt be stopped and he should be on [place] when he does the partial nephrectomy Has to make an appointment with Dr Cope. The result of thyroid biopsy is not in the chart. ?Moved on 02/15/21 to the [facility] with 2 house mates . Staff makes breakfast lunch and dinner. He can go out with supervision . Staff supervises his medications. Noticed he is less shaky. Had labs done Has DNR(full code) and HCP (his sister Jeannette Yousif 64 yr Lives in [place]. Has a son and daughter [phone]) ?02/18/21 Has been followed by Elda since 11/25/20 . Had significant interval medical history. Had left sided thyroid nodule FNA biopsy done on 02/05/21 . Had Seen Dr Canales and Dr Cope for eval of right renal cyst suspicious for renal cell cancer Dr Cope offered partial nephrectomy Came today with Program Manage Ana Maria Samaniego She informed me amando he has been moved to a new facility on 02/15/[address] [place] [facility] [place] with 2 other people Has 24 hour staff supervision. . A new Patient Care Technician Instructor Tirso Low [phone]. Ana Maria informed me that he is getting more forgetful and confused in past 3 months and someone has to be with him at nights. ?01/02/21 Pt having VNA services in the morning 7 days a week, they are going forward to get him into a 24/7 facility. Now it is supportive living. Next will be [facility], street name in [place], plans on starting there 02/15 according to Nallely pt health care legal assistant. Pt arr very unsteady on his feet, took tremor medication at 745am. takes it once a day. Walked out this morning from bedroom to kitchen and appeared to be steady according to MONET Ramos that saw him this morning. He also has an appointment with YAIMA Sahu 01/17/21 for one time elevated ammonia levels 09/05 er visit. labs repeated last and alt/ast and ammonia all wnl as of 12/05 ?Upon d/c walking steadily, no need to hold onto wall railings. states he is more unsteady with prolonged walking but is ok with shorter walks. ?Since last visit per nallely may have seen urology, had thyroid ultrasound completed 12/19/20. Has MONET jim coming out and worked with he mother, she had these symptoms which led to parkinons. Had MRI completed 02/2020. no concern of dementia and parkinsons. Has not seen Dr Murcia since then. Sees Dr Meier neurology last seen [address] Dutton within last 2 months, no changes. ?12-13-20--[facility] IS STILL WAITING FOR [place] TO GIVE OK TO EXTEND SERVICES ALSO. ?Has a rash on both forearms, puritic, does not scratch it tries to avoid itching because he does not want a scar. Does not know how he got it, Nallely warning analyst also not sure, no changes to detergents. says he bathes with staff in the house but does it himself. advised to clean thoroughly and prescribed cream to apply to area. will also be seeing dermatology early next month. No changes to medications, nothing new that could cause allergic reaction. no respiratory symptoms, not spreading per pt. ?per health care legal assistant nallely working on getting patient into 24/7 facility due to pt acuity. needs help 24/7 and no staff at home at night. he does not shower alone, has a roomate who is helpful and calls if any issue occur. staff remind pt to take medication however it is often missed or taken late nd he needs help with this. Also had another fall thursday night, says it was because he was putting on his pants and slid on the cuff. paramedics called helped pt and no need to take to hospital, no brusised or contusions. pt agreeable to go to 24/7 care and knows it is needed. Advised nallely if there is anything needed such as paperwork to move pt we will assist. * ROS:?General/Constitutional:?Denies?Change in appetite.?Denies?Chills.?Denies?Fatigue.?Denies?Fever.?Denies?Headache.?Denies?L ightheadedness.?Denies?Sleep disturbance.?Denies?Weight gain.?Denies?Weight loss.?Respiratory:?Denies?Asthma,?denies.?Denies?Breathing pattern.?Denies?Breathing problems,?denies.?Denies?Chest pain.?Denies?Cough.?Denies?Hemoptysis.?Denies?Pain with inspiration.?Denies?Pneumonia,?denies.?Denies?Shortness of breath,?denies.?Denies?Shortness of breath at rest.?Denies?Shortness of breath with exertion.?Denies?Sputum production.?Denies?Tuberculosis,?denies.?Denies?Wheezing.?Cardiovascular:?Denies?Chest pain.?Denies?Chest pain at rest.?Denies?Chest pain with exertion.?Denies?Claudication.?Denies?Cyanosis.?Denies?Difficulty laying flat.?Denies?Dizziness.?Denies?Dyspnea on exertion.?Denies?Fluid accumulation in the legs.?Denies?Heart murmur,?denies.?Denies?Heart problems,?denies.?Denies?High blood pressure,?denies.?Denies?Irregular heartbeat,?denies.?Denies?Orthopnea.?Denies?Palpitations,?denies.?Denies?Rheumat ic fever,?denies.?Denies?Shortness of breath.?Denies?Weakness.?Denies?Weight gain.?Gastrointestinal:?Denies?Abdominal pain.?Denies?Blood in stool.?Denies?Change in bowel habits.?Denies?Colitis.?Denies?Constipation.?Denies?Decreased appetite.?Denies?Diarrhea.?Denies?Difficulty swallowing. Denies?Nausea.?Denies?Rectal bleeding.?Denies?Stomach problems.?Denies?Vomiting.?Denies?Weight loss.? * Medical History:? * Surgical History:?Stent pant ed in Left kidney Dr Anatoliy Santos 2017Lap Cholcystectomy 2013Resection of carcinoid tumor from right lowe bronchus 2018 * Hospitalization/Major Diagno stic Procedure:? * Family History:?FamilyHx: Hy pertension;.?Father: , not known to Melecio.?Mother: , cancer of lymph node in neck, kidney, Boykin Hynt syndrome.?Paternal uncle: cancer pancreas.?Siblings: sister has movement disorder and other neuro problems..? * Social History:?Tobacco Use:?Tobacco Use/Smoking?Are you a?nonsmoker ?Additional Findings: Tobacco Non-User?Current non-smoker ?Tobacco use other than smoking?Are you an other tobacco user??No ???Social_Migrated:?SocialHx: [place] Language EnglishNever a smoker. ???Drugs/Alcohol:?Alcohol Screen (Audit-C)?Did you have a drink containing alcohol in the past year??No ?Points?0 ?Interpretation?Negative ?Do you smoke marijuana?: Denies. ?Do you drink alcohol?: No. * Medications:?TakingSymbicort 160-4.5 MCG/ACT Aerosol 2 puffs Inhalation Twice a dayTamsulosin HCl 0.4 MG Capsule 1 capsule 30 minutes after the same meal each day Orally Once a dayrisperiDONE 0.5 MG Tablet 1 TAB Orally TAKE W/ 1MG AT BEDTIME ONCE A DAY, Notes: TAKE W/ 1MGSpiriva HandiHaler 18 MCG CAPS Inhalation Daily, Notes: INHALE CONTENTS OF 1 CAPSULE ONCE DAILY.Eliquis 5 MG Tablet 1 TAB Orally twice dailySertraline HCl 50 MG Tablet 1 tablet Orally TAKE Once a day W/ 100MG TAB, Notes: TAKE W/ 100MGBenztropine Mesylate 0.5 MG Tablet 1 tab orally Twice A DayrisperiDONE 1 MG Tablet 1 TAB orally TAKE W/ 0.5MG AT BEDTIME ONCE A DAY, Notes: TAKE W/ 0.5MGSertraline HCl 100 MG Tablet TAKE 1 TABLET BY MOUTH DAILY , Notes: TAKE W/ 50MGKetoconazole 2 % Cream 1 application Externally Twice a dayBacitracin 500 UNIT/GM Ointment 1 application Externally USE NEEDEDMilk of Magnesia 400 MG/5ML Suspension 5ML NEEDED Orally USE NEEDED DAILYHydrocortisone 1 % Ointment 1 application Externally Twice a day PRNDesitin 13 % Cream apply thick layer Externally as needed twice a day for reddened pascale-area, if symptoms persist longer than 3 days contact MDTylenol 325 MG Tablet 1-2 tabs Orally twice a day as needed for headache, body aches or fever greater than 100 degrees- DO NOT EXCEED 4 TABS DAILYAtorvastatin Calcium 20 MG Tablet TAKE (1) TABLET BY MOUTH EVERY EVENING. Ondansetron 4 MG Tablet Dispersible 1 tablet on the tongue and allow to dissolve Orally every 6 hrs PRN, Notes: Notify MD If Sx's Persist Longer Than 48 HrsRobitussin DM 100-10 MG/5ML Syrup 10 mL Orally every 4 hrs PRN FOR COUGH, Notes: Notify MD If Sx's Persist Longer Than 48 HrsClotrimazole 1 % Cream 1 application Externally Twice a day prn, Notes: Apply Thin Layer PRN Topically To Flarred/Red Vincent Of BodyAcetaminophen 325 MG Tablet 2 TABS ORALLY TWICE A DAY FOR PAINPropranolol HCl 10 MG Tablet TAKE 1 TABLET BY MOUTH TWICE DAILY take bp twice a day before taking med, if systolic is below 90, hold the med and contact MD. If heart rate is below 60, hold and contact MD. amLODIPine Besylate 10 MG Tablet TAKE 1 TABLET BY MOUTH ONCE DAILY IN THE MORNING. Pantoprazole Sodium 40 MG Tablet Delayed Release TAKE 1 TABLET BY MOUTH ONCE DAILY IN THE MORNING. Lisinopril-hydroCHLOROthiazide 20-12.5 MG Tablet TAKE 1 TABLET BY MOUTH ONCE DAILY IN THE MORNING. Taking Symbicort 160-4.5 MCG/ACT Aerosol 2 puffs Inhalation Twice a dayTaking Tamsulosin HCl 0.4 MG Capsule 1 capsule 30 minutes after the same meal each day Orally Once a dayTaking risperiDONE 0.5 MG Tablet 1 TAB Orally TAKE W/ 1MG AT BEDTIME ONCE A DAY, Notes: TAKE W/ 1MGTaking Spiriva HandiHaler 18 MCG CAPS Inhalation Daily, Notes: INHALE CONTENTS OF 1 CAPSULE ONCE DAILY.Taking Eliquis 5 MG Tablet 1 TAB Orally twice dailyTaking Sertraline HCl 50 MG Tablet 1 tablet Orally TAKE Once a day W/ 100MG TAB, Notes: TAKE W/ 100MGTaking Benztropine Mesylate 0.5 MG Tablet 1 tab orally Twice A DayTaking risperiDONE 1 MG Tablet 1 TAB orally TAKE W/ 0.5MG AT BEDTIME ONCE A DAY, Notes: TAKE W/ 0.5MGTaking Sertraline HCl 100 MG Tablet TAKE 1 TABLET BY MOUTH DAILY , Notes: TAKE W/ 50MGTaking Ketoconazole 2 % Cream 1 application Externally Twice a dayTaking Bacitracin 500 UNIT/GM Ointment 1 application Externally USE NEEDEDTaking Milk of Magnesia 400 MG/5ML Suspension 5ML NEEDED Orally USE NEEDED DAILYTaking Hydrocortisone 1 % Ointment 1 application Externally Twice a day PRNTaking Desitin 13 % Cream apply thick layer Externally as needed twice a day for reddened pascale-area, if symptoms persist longer than 3 days contact MDTaking Tylenol 325 MG Tablet 1-2 tabs Orally twice a day as needed for headache, body aches or fever greater than 100 degrees- DO NOT EXCEED 4 TABS DAILYTaking Atorvastatin Calcium 20 MG Tablet TAKE (1) TABLET BY MOUTH EVERY EVENING. Taking Ondansetron 4 MG Tablet Dispersible 1 tablet on the tongue and allow to dissolve Orally every 6 hrs PRN, Notes: Notify MD If Sx's Persist Longer Than 48 HrsTaking Robitussin DM 100-10 MG/5ML Syrup 10 mL Orally every 4 hrs PRN FOR COUGH, Notes: Notify MD If Sx's Persist Longer Than 48 HrsTaking Clotrimazole 1 % Cream 1 application Externally Twice a day prn, Notes: Apply Thin Layer PRN Topically To Flarred/Red Vincent Of BodyTaking Acetaminophen 325 MG Tablet 2 TABS ORALLY TWICE A DAY FOR PAINTaking Propranolol HCl 10 MG Tablet TAKE 1 TABLET BY MOUTH TWICE DAILY take bp twice a day before taking med, if systolic is below 90, hold the med and contact MD. If heart rate is below 60, hold and contact MD. Taking amLODIPine Besylate 10 MG Tablet TAKE 1 TABLET BY MOUTH ONCE DAILY IN THE MORNING. Taking Pantoprazole Sodium 40 MG Tablet Delayed Release TAKE 1 TABLET BY MOUTH ONCE DAILY IN THE MORNING. Taking Lisinopril-hydroCHLOROthiazide 20-12.5 MG Tablet TAKE 1 TABLET BY MOUTH ONCE DAILY IN THE MORNING. Not-TakingProAir HFA 108 (90 Base) MCG/ACT AERS Inhalation Every 6 hours, Notes: INHALE 2 PUFFS BY MOUTH EVERY 6 HOURS NEEDEDBenadryl Allergy 25 MG Tablet 1 tablet Orally Once a day PRN FOR ITCHINGPotassium Chloride Elena ER 20 MEQ Tablet Extended Release TAKE (1) TABLET BY MOUTH TWICE A DAY. Potassium Chloride ER 10 MEQ Tablet Extended Release 1 tablet with food Orally Once a dayLORazepam 1 MG Tablet 1 tablet at bedtime as needed Orally every 6 hrs PRNQUEtiapine Fumarate 100 MG Tablet 1 tablet Orally Once a day, Notes: DANIELA CARRILLO LUNCHROOM MONITOR- DR CARRILLOPJUXGM-PXQTAdciWPUXGK-Uuyuvhfayueyv 5-325 MG TABS Oral , Notes: TAKE 1 TABLET EVERY 4 TO 6 HOURS NEEDED FOR PAIN.Nasacort AQ 55 MCG/ACT AERO Nasal Gabapentin 300 MG Capsule 1 capsule Orally TIDGabapentin 100 Capsule TAKE 3 CAPSULES BY MOUTH THREE TIMES DAILY Gabapentin 100 MG Capsule 1 capsule Orally Three times a dayPhentermine HCl 37.5 MG Tablet 1 tablet Orally Once a dayDiclofenac Sodium 50 MG Tablet Delayed Release 1 tablet Orally Twice a day prnIbuprofen 600 MG Tablet 1 tablet Orally every 6 hrsDandruff Shampoo 1 % Shampoo [address] of regular shampoo Externally 4X a WeekVentolin HFA 108 (90 Base) MCG/ACT Aerosol Solution 2 puffs as needed Inhalation every 6 hrs prnTylenol 8 Hour Arthritis Pain 650 MG Tablet Extended Release 1 TAB Orally EVERY 8 HRS PRN FOR HIP PAINSertraline HCl 50 MG Tablet 1 tablet Orally Once a day, Notes: changes to 50 in hosp, has been taking only 50 since 09/13/20Omeprazole 20 MG Capsule Delayed Release TAKE ONE CAPSULE BY MOUTH EVERY DAY Orally Medication List reviewed and reconciled with the patientNot-Taking ProAir HFA 108 (90 Base) MCG/ACT AERS Inhalation Every 6 hours, Notes: INHALE 2 PUFFS BY MOUTH EVERY 6 HOURS NEEDEDNot-Taking Benadryl Allergy 25 MG Tablet 1 tablet Orally Once a day PRN FOR ITCHINGNot-Taking Potassium Chloride Elena ER 20 MEQ Tablet Extended Release TAKE (1) TABLET BY MOUTH TWICE A DAY. Not-Taking Potassium Chloride ER 10 MEQ Tablet Extended Release 1 tablet with food Orally Once a dayNot-Taking LORazepam 1 MG Tablet 1 tablet at bedtime as needed Orally every 6 hrs PRNNot-Taking QUEtiapine Fumarate 100 MG Tablet 1 tablet Orally Once a day, Notes: DANIELA CARRILLO, LUNCHROOM MONITOR- DR KINCAIDZFCLEM-YBKVAYcl-Ikurei oxyCODONE-Acetaminophen 5-325 MG TABS Oral , Notes: TAKE 1 TABLET EVERY 4 TO 6 HOURS NEEDED FOR PAIN.Not-Taking Nasacort AQ 55 MCG/ACT AERO Nasal Not-Taking Gabapentin 300 MG Capsule 1 capsule Orally TIDNot-Taking Gabapentin 100 Capsule TAKE 3 CAPSULES BY MOUTH THREE TIMES DAILY Not-Taking Gabapentin 100 MG Capsule 1 capsule Orally Three times a dayNot-Taking Phentermine HCl 37.5 MG Tablet 1 tablet Orally Once a dayNot-Taking Diclofenac Sodium 50 MG Tablet Delayed Release 1 tablet Orally Twice a day prnNot-Taking Ibuprofen 600 MG Tablet 1 tablet Orally every 6 hrsNot-Taking Dandruff Shampoo 1 % Shampoo [address] of regular shampoo Externally 4X a WeekNot-Taking Ventolin HFA 108 (90 Base) MCG/ACT Aerosol Solution 2 puffs as needed Inhalation every 6 hrs prnNot-Taking Tylenol 8 Hour Arthritis Pain 650 MG Tablet Extended Release 1 TAB Orally EVERY 8 HRS PRN FOR HIP PAINNot-Taking Sertraline HCl 50 MG Tablet 1 tablet Orally Once a day, Notes: changes to 50 in hosp, has been taking only 50 since 09/13/20Not-Taking Omeprazole 20 MG Capsule Delayed Release TAKE ONE CAPSULE BY MOUTH EVERY DAY Orally Medication List reviewed and reconciled with the patient * Allergies:?N.K.D.A.no[Allerg ies Verified] Objective: * Vitals:?Ht: 68.1101 in. * Examination: ???General Examination: ?GENERAL APPEARANCE:?in no acute distress, well developed, well nourished.?HEAD:?normocephalic, atraumatic.?EYES:?pupils equal, round, reactive to light and accommodation.?EARS:?normal.?ORAL CAVITY:?mucosa moist.?THROAT:?clear.?NECK/THYROID:?neck supple, full range of motion, no cervical lymphadenopathy.?SKIN:?no suspicious lesions, warm and dry.?HEART:?no murmurs, regular rate and rhythm, S1, S2 normal.?LUNGS:?clear to auscultation bilaterally.?ABDOMEN:?normal, bowel sounds present, soft, nontender, nondistended.?EXTREMITIES:?no clubbing, cyanosis, or edema.?NEUROLOGIC:?nonfocal, motor strength normal upper and lower extremities, sensory exam intact.? Assessment: * Assessment: 1.?Diabetes mellitus due to underlying condition without complications - E08.9, On no meds Good control06/11/21 will repeat labs before next appt12/11/21 last stable, repeat labs today?2. Parkinson disease - G20 (Primary), 12/22/22 Has tremors of hands, clasp knife rigidity of elbow, small shuffling gait Suspect parkinsonism . Had repeated falls 3 times in a month Will refer to neurologist for evaluation?3.?Essential hypertension - I10, Stable?4.?Mild mental retardation - F70, Sees Psychiatrist Daniela Carrillo at [address] [place] [address] or Human Services'09/11/[address] Carrillo monthly?5.?Coarse tremors - G25.2, Has more right arm tremor Sees Dr Diane Meier Has appt in October 2909/28/20 went to hosp for severe tremors, high ammonia given lactulose x1, gabapentin stopped since 09/13, will continue to hold until pt sees neurology, no tremors noted on exam11/22/20 improved, slight01/02/21 tremor more pronounced and walking difficulty with prolonged movement. Upon sitting during appointment and dc walking was steady and tremors decreased. no longer on gabapentin, stopped permanently per neurology?6.?Renal mass - N28.89, 12/11/21 last appt 10/2021 mild increase, per dr cope will monitor U/s every 6 months?7.?JACQUELYN on CPAP - G47.33?8.?Gait difficulty - R26.9, ongoing, new warning analyst notices deconditioned. 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 Put on Eliquis in ED . I will consider keeping him on it for a long time12/05/20 on chronic anticoagulation, educated to stop ibuprofen, will repeat cbc06/11/21 cbc wnl, continues on eliquis?10.?Hx of pulmonary embolus - Z86.711?11.?History of obesity - Z86.39, 04/08/23 Weighed 230 lbs Lost weight by portion control Now weighs 182 lbs? Plan: * Treatment: * Procedure Codes:? * Follow Up:?4 Months * Billing Information: * Visit Code:? 28164 Office Visit, Est Pt., Level 4. * Procedure Codes:? * Sign off status: Completed true * Provider:?Donal Jackson MD Date:?2022 Generated for Blaise harley/Roberth/Getitting on:?07/05/2024 10:38 AM EST History and Physical Notes * HPI (History of Present Illness) Category Sub-Category Detail Notes Category Not es Constitutional 04/08/23 Came with Humaira Chavez his DCP (Direct Care Provider) since October . Vera has left. Looking skinny Wearing a cap and colored strands of beads Has a duval moustache and boothe. Using a walker No more falls. No complaints. Goes to [facility] for PT in [place] to strengthen his leg muscles and gait. Going twice a week. No new complaints. 12/22/22 Came with Vera Chu Using a walker .Fell in the kitchen while turning . Fell on the floor Bruised his left elbow . Kelvin called 911 and taken to [facility] in Had Xray of arm, and was sent home 12/02/22 Came with Vera Chu Looking well. No falls No new complaints. Saw Dr Cope for his hematuria and right renal mass which is stable. Told him not to worry. Meds reviewed and reconciled Sighned forms 10/07/22 Came with Vera Chu .Regular follow up visit. Went to a Day Program and they noticed swelling of left ankle . He said he is having slight pain in left leg for past 1 week. No trauma, no fall. No sob. palpitaion. No change in medications . Uses a walker for past week Normally using a cane . States he feels unstable. 09/01/22 Havong a cold for 2 weeks Now having severe cough with yellow phlegm Chest hurts from coughing . Will give ABX and cough meds 07/16/22 Here for his MWV Came with a new Fiber Optic Central Office Installer of his residence Vera Chu [phone] Joined 03/18/22 Was working for [employer] for 20 years. Has HCP with Jeannette Yousif, his sister [phone] [place] [address] 66 yr single . Has a younger sister Padma([employer] at 16 [address] in [place] 60 yr single. Given MOLST forms today and filled out in presence of Vera 06/16/22 Came with Marya Bhhsr1wymbpyy with a dog [phone]). Has a rash on his armpits which is irtating and itches. Give a cream by Rosario and it helped 06/04/22 Came with Parkerchastity Mcclelland Comes in wearing a hat and beads.Has a small goatee. Plans to take him to [place] for a vacation. Meds reviewed and reconciled.No new complaints except back pain intermittent 02/13/22Came with Lydia. Whitaker had noticed some blood in his stool this morning and she brought him in for eval. I told them he is on Eliquis and has hx of hemorrhoids and can have intermittent bleeding. Was in hospital with abdominal pain at [facility] Was there for 5 days and was investigated and released 12/11/21 Here with Lydia on of pt DSPs. Medications reviewed and reconciled. No new complaints. In interm from last regular follow up pt has seen Urology Dr Cope they are monitoring mass with ultrasound every [address] Chen for sleep apnea copd and thyroid nodule (biopsy benign) . saw neurology SAFETY MANAGER and no changes to medication. Optometry beginning of september no notes, got new glasses. follows up with oncology dr canales in january for hx of carcinoid tumor. Dr Daniela Carrillo psychiatry every 6 months had an appt last week, no changes to medications. 11/05/21 Urgent visit to evaluate rash on both upper arm . Noticed it yesterday Doesnt itch. Came with the therapy administrative assistant of his program , Blanco . Royce Mcclelland ([phone]) He was moved from shared living to a 24 hour superhoused housing in January 2021. Has 2 room mates with him Reason for the falling and not compliant with his medications. No change in meds. Had been seeing Rosario and was referred for PT and did not follow through. SeeRen Chen and Dr Cope (renal mass) amd Dr Gisela Carrillo psychiatrist 09/11/21 Medications reviewed and reconciled Stays active, goes on outings, goes bowling. Optometry 09/16/[address] chen saw last week, ordered repeat CT scan of chest to rule out new carcinoid tumor. f/u. no issues. seeing dr chen 09/17/21 called today 09/11/21 about renal mass noted on ct scan. we are already aware Urology Dr Cope for renal mass, less then 4cm continues to be 3.2cm based on Ct scan from dr chen. MRI scheduled in October from last note from urology. appears slow growing and not needed to be removed at this time Dr Canales oncology, has f/u january for f/u hx carcinoid tumor and removal. he also noted renal mass and pt has seen urology which is following it. only needs to see Ally if indicated for another reason other then lung tumor Thyroid nodules noted on ct scan last year, pt had U/S and biopsy, the biopsy did come back as benign. cold nodule biopsy needed to be completed. no need for follow up Pt was also seen in the ER last month to rule out diverticulitis from pain in stomach associated wtih fever and chills. CT scan at that time was normal other then known renal mass, was noted to have gastroenteritis and send home on anti-nausea medications. Dr barron dermatology for dermatitis and actinic keratosis, last note from 01/2021 f/u in 6 months should have seen. Neurology Dr Meier last seen 10/2020. Dr Gisela Carrillo seeing psychiatry, via zoom last month, every 6 months. 03/11/21 Came today with Ana Maria Samaniego and new Shoemaker Apprentice Tirso Low [phone] Chen and he sent not to Dr Cope stating his Eliquis shouldnt be stopped and he should be on [place] when he does the partial nephrectomy Has to make an appointment with Dr Cope. The result of thyroid biopsy is not in the chart. Moved on 02/15/21 to the [facility] with 2 house mates . Staff makes breakfast lunch and dinner. He can go out with supervision . Staff supervises his medications. Noticed he is less shaky. Had labs done Has DNR(full code) and HCP (his sister Jeannette Yousif 64 yr Lives in [place]. Has a son and daughter [phone]) 02/18/21 Has been followed by Elda since 11/25/20 . Had significant interval medical history. Had left sided thyroid nodule FNA biopsy done on 02/05/[address] Canales and Dr Cope for eval of right renal cyst suspicious for renal cell cancer Dr Cope offered partial nephrectomy Came today with Program Manage Ana Maria Samaniego She informed me amando he has been moved to a new facility on 02/15/[address] [place] [facility] [place] with 2 other people Has 24 hour staff supervision. . A new Patient Care Technician Instructor Tirso Low [phone]. Ana Maria informed me that he is getting more forgetful and confused in past 3 months and someone has to be with him at nights. 01/02/21 Pt having VNA services in the morning 7 days a week, they are going forward to get him into a 24/7 facility. Now it is supportive living. Next will be [facility], street name in [place], plans on starting there 02/15 according to Nallely pt health care legal assistant. Pt arr very unsteady on his feet, took tremor medication at 745am. takes it once a day. Walked out this morning from bedroom to kitchen and appeared to be steady according to OMNET Ramos that saw him this morning. He also has an appointment with GI Dr Sahu 01/17/21 for one time elevated ammonia levels 09/05 er visit. labs repeated last and alt/ast and ammonia all wnl as of 12/05 Upon d/c walking steadily, no need to hold onto wall railings. states he is more unsteady with prolonged walking but is ok with shorter walks. Since last visit per nallely may have seen urology, had thyroid ultrasound completed 12/19/20. Has MONET jim coming out and worked with he mother, she had these symptoms which led to parkinons. Had MRI completed 02/2020. no concern of dementia and parkinsons. Has not seen Dr Murcia since then. Sees Dr Meier neurology last seen [address] Dutton within last 2 months, no changes. 12-13-20--[facility] IS STILL WAITING FOR [facility] TO GIVE OK TO EXTEND SERVICES ALSO. Has a rash on both forearms, puritic, does not scratch it tries to avoid itching because he does not want a scar. Does not know how he got it, Nallely warning analyst also not sure, no changes to detergents. says he bathes with staff in the house but does it himself. advised to clean thoroughly and prescribed cream to apply to area. will also be seeing dermatology early next month. No changes to medications, nothing new that could cause allergic reaction. no respiratory symptoms, not spreading per pt. per health care legal assistant nallely working on getting patient into 24/7 facility due to pt acuity. needs help 24/7 and no staff at home at night. he does not shower alone, has a roomate who is helpful and calls if any issue occur. staff remind pt to take medication however it is often missed or taken late nd he needs help with this. Also had another fall thursday night, says it was because he was putting on his pants and slid on the cuff. paramedics called helped pt and no need to take to hospital, no brusised or contusions. pt agreeable to go to 24/7 care and knows it is needed. Advised nallely if there is anything needed such as paperwork to move pt we will assist. Examination Category Sub-Category Detail Notes Category Not es General Examination GENERAL APPEARANCE: in no ac janay distress, well developed, well nourished HEAD: normocephalic, atrau matic EYES: pupils equal, round, reactive to light and accommodation EARS: normal THROAT: clear NECK/THYROID: neck supple, full ra nge of motion, no cervical lymphadenopathy HEART: no murmurs, regular rate and rhythm, S1, S2 normal LUNGS: clear to auscultatio n bilaterally ABDOMEN: normal, bowel sounds present, soft, nontender, nondistended NEUROLOGIC: nonfocal, motor stre ngth normal upper and lower extremities, sensory exam intact SKIN: no suspicious lesion s, warm and dry EXTREMITIES: no clubbing, cyanosi s, or edema ORAL CAVITY: mucosa moist
--- OUTSIDE RECORDS SUMMARY | 2024-07-05 10:38 | XMS_ITS ---
Author Organization [facility] Address [address] [facility] [facility] [address] [place] [address] Care Team Providers Care Cutter Grinder Name Role Phone DANIELITO PIKE Primary Care Provider REASON FOR VISIT Letter To D/C Or Intermittent Heating Pad Use Encounters Encounter Location Date Provider Diagnosis [facility] [address] [facility] [address] [place] [address] 01/07/2023 DANIELITO PIKE Plan Of Treatment No Information Progress Notes * Nicolas YOUSIF DDOB:1959 (62 yo M)Acc No.[id number]:01/07/2023 Patient:?Nicolas Yousif :1960???Age:62 Y???Sex:Male Address:[address], [place], [address] * true * Date:? Generated for Printi ng/Famenag/eTransmitting on:?07/05/2024 10:38 AM EST
--- OUTSIDE RECORDS SUMMARY | 2024-07-05 10:38 | XMS_ITS ---
Author Organization [facility] Address [address] [place] [address] Care Team Providers Care Feature Writer Name Role Phone DANIELITO PIKE Primary Care Provider [phone] REASON FOR VISIT Transfer to [facility] Encounter Location Date Provider Diagnosis [facility] [address] [place] [address] 05/13/2023 DANIELITO PIKE Plan Of Treatment No Information Progress Notes * Nicolas YOUSIF DDOB:1959 (63 yo M)Acc No.[id number]:05/13/2023 Patient:?Nicolas Yousif :1960???Age:63 Y???Sex:Male Address:[address], [place], [address] * true * Date:? Generated for Printi ng/Famenag/eTransmitting on:?07/05/2024 10:38 AM EST
--- OUTSIDE RECORDS SUMMARY | 2024-07-05 10:38 | XMS_ITS | Clinical Summary ---
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 asking that patient have Chest CT and follow up in the office, he is lost to follow since 2022, ) from Last 3 Months Surgical History Surgery Date Site/Laterality Comments OTHER SURGICAL HISTORY 09/09/2018 Right PROCEDURE: [place] RMVL LUNG OTHER/THAN PNUMEC COMPLETION PNUMEC; COMMENT: VATS bilobectomy, RML, RLL Medical History Medical History Date Comments History of lung cancer DX:Histor y of lung cancer Rectal bleeding DX:Rectal bleedi ng Giardiasis DX:Giardiasis Esophageal reflux DX:Esophageal reflux Essential (primary) hypertension DX:Essential (primary) hypertension Social History Tobacco Use Types Packs/Day Years Used Date Smoking Tobacco: Never Smokeless Tobacco: Never Alcohol Use Standard Drinks/Week Comments No 0 (1 standard drink = 0.6 oz pur e alcohol) Sex and Gender Information Value Date Recorded Sex Assigned at Male 06/09/2024 12:03 PM EST Legal Sex Male 10:11 AM EST Gender Identity Male 06/09/2024 12:03 PM EST Sexual Orientation Straight 06/09/2024 12 :03 PM EST Obstetrics History Last Filed Vital Signs Vital Sign Reading Time Taken Comments Blood Pressure 135/82 12/26/2022 2:52 PM EDT Sit ting L Arm Pulse 60 12/26/2022 2:52 PM EDT Temperature - - Respiratory Rate - - Oxygen Saturation - - Inhaled Oxygen Concentration - - Weight 86 kg (189 lb 8 oz) 12/26/2022 2:52 PM ED T Height 172.7 cm (5' 8 ) 12/26/2022 2:52 PM EDT Body Mass Index 28.81 12/26/2022 2:52 PM EDT Plan of Treatment Health Maintenance Due Date Last Done Comments DTaP,Tdap,and Td Vaccines (1 - Tdap) 01/18/1980 Pneumococcal Vaccine: 50+ Ye ars (1 of 1 - PCV) 2011 Zoster Vaccines (1 of 2) 2011 Cholesterol Screening (Lipid Panel) 04/26/2022 Colorectal Cancer Screening: Colonoscopy 04/26/2022 Depression Screening 04/26/2022 HIV Screening 04/26/2022 Hepatitis C Screening 04/26/2022 Medicare Annual Wellness Visit 04/26/2022 Social Influencers of Health Screening 04/26/2022 Hypertension/CHF/CAD Annual BMP Blood Test 05/01/2022 COVID-19 Vaccine ( - 2023-2 5 season) 2024 Influenza Vaccine (#1) 2024 RSV Immunization Patients 60 + Years Old (1 - 1-dose 75+ series) 01/18/2036 HIB Vaccines Aged Out No longer eligi ble based on patient's age to complete this topic HPV Vaccines Aged Out No longer eligi ble based on patient's age to complete this topic Hepatitis A Vaccines Aged Out No long er eligible based on patient's age to complete this topic Hepatitis B Vaccines Aged Out No long er eligible based on patient's age to complete this topic IPV Vaccines Aged Out No longer eligi ble based on patient's age to complete this topic MMR Vaccines Aged Out No longer eligi ble based on patient's age to complete this topic Meningococcal ACWY Vaccine Aged Out N o longer eligible based on patient's age to complete this topic Meningococcal B Vacine Aged Out No lo nger eligible based on patient's age to complete this topic Pneumococcal Vaccine: Pediat rics (0 to 5 Years) and At-Risk Patients (6 to 64 Years) Aged Out No longer eligible b ased on patient's age to complete this topic RSV Immunization Patients Un heri 20 months Aged Out No longer eligible b ased on patient's age to complete this topic Varicella Vaccines Aged Out No longer eligible based on patient's age to complete this topic Insurance MEDICARE MEDICAID - [place] Advance Directives Documents on File Type Date Recorded 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 Health Care Decision (hx) 09/14/2018 AD JACK DIRECTIVE Health Care Decision (hx) 09/14/2018 AD JACK DIRECTIVE Health Care Decision (hx) 09/14/2018 AD JACK DIRECTIVE Health Care Decision (hx) 09/14/2018 AD JACK DIRECTIVE Health Care Decision (hx) 09/14/2018 AD JACK DIRECTIVE Health Care Decision (hx) 09/14/2018 AD JACK DIRECTIVE Health Care Decision (hx) 09/14/2018 AD JACK DIRECTIVE Health Care Decision (hx) 09/14/2018 AD JACK DIRECTIVE Health Care Decision (hx) 09/14/2018 AD JACK DIRECTIVE Health Care Decision (hx) 09/14/2018 AD JACK DIRECTIVE Health Care Decision (hx) 09/14/2018 AD JACK DIRECTIVE Health Care Decision (hx) 09/14/2018 AD JACK DIRECTIVE Health Care Decision (hx) 09/14/2018 AD JACK DIRECTIVE Health Care Decision (hx) 09/14/2018 AD JACK DIRECTIVE Health Care Decision (hx) 09/14/2018 AD JACK DIRECTIVE Health Care Decision (hx) 09/14/2018 AD JACK DIRECTIVE Health Care Decision (hx) 09/14/2018 AD JACK DIRECTIVE Health Care Decision (hx) 09/14/2018 AD JACK DIRECTIVE Health Care Decision (hx) 09/14/2018 AD JACK DIRECTIVE Health Care Decision (hx) 09/14/2018 AD JACK DIRECTIVE Health Care Decision (hx) 09/12/2018 AD JACK DIRECTIVE Health Care Decision (hx) 09/12/2018 AD JACK DIRECTIVE Health Care Decision (hx) 09/12/2018 AD JACK DIRECTIVE Health Care Decision (hx) 09/12/2018 AD JACK DIRECTIVE Health Care Decision (hx) 09/12/2018 AD JACK DIRECTIVE Health Care Decision (hx) 09/12/2018 AD JACK DIRECTIVE Health Care Decision (hx) 09/12/2018 AD JACK DIRECTIVE Health Care Decision (hx) 09/12/2018 AD JACK DIRECTIVE Health Care Decision (hx) 09/12/2018 AD JACK DIRECTIVE Health Care Decision (hx) 09/12/2018 AD JACK DIRECTIVE Health Care Decision (hx) 09/12/2018 AD JACK DIRECTIVE Health Care Decision (hx) 09/12/2018 AD JACK DIRECTIVE Health Care Decision (hx) 09/12/2018 AD JACK DIRECTIVE Health Care Decision (hx) 09/12/2018 AD JACK DIRECTIVE Health Care Decision (hx) 09/12/2018 AD JACK DIRECTIVE Health Care Decision (hx) 09/12/2018 AD JACK DIRECTIVE Health Care Decision (hx) 09/12/2018 AD JACK DIRECTIVE Health Care Decision (hx) 09/12/2018 AD JACK DIRECTIVE Health Care Decision (hx) 09/12/2018 AD JACK DIRECTIVE Health Care Decision (hx) 09/12/2018 AD JACK DIRECTIVE Health Care Decision (hx) 09/09/2018 AD JACK DIRECTIVE Health Care Decision (hx) 09/09/2018 AD JACK DIRECTIVE Health Care Decision (hx) 09/09/2018 AD JACK DIRECTIVE Health Care Decision (hx) 09/09/2018 AD JACK DIRECTIVE Health Care Decision (hx) 09/09/2018 AD JACK DIRECTIVE Health Care Decision (hx) 09/09/2018 AD JACK DIRECTIVE Health Care Decision (hx) 09/09/2018 AD JACK DIRECTIVE Health Care Decision (hx) 09/09/2018 AD JACK DIRECTIVE Health Care Decision (hx) 09/09/2018 AD JACK DIRECTIVE Health Care Decision (hx) 09/09/2018 AD JACK DIRECTIVE Health Care Decision (hx) 09/09/2018 AD JACK DIRECTIVE Health Care Decision (hx) 09/09/2018 AD JACK DIRECTIVE Health Care Decision (hx) 09/09/2018 AD JACK DIRECTIVE Health Care Decision (hx) 09/09/2018 AD JACK DIRECTIVE Health Care Decision (hx) 09/09/2018 AD JACK DIRECTIVE Health Care Decision (hx) 09/09/2018 AD JACK DIRECTIVE Health Care Decision (hx) 09/09/2018 AD JACK DIRECTIVE Health Care Decision (hx) 09/09/2018 AD JACK DIRECTIVE Health Care Decision (hx) 09/09/2018 AD JACK DIRECTIVE Health Care Decision (hx) 09/09/2018 AD JACK DIRECTIVE Health Care Decision (hx) 09/09/2018 AD JACK DIRECTIVE Health Care Decision (hx) 09/09/2018 AD JACK DIRECTIVE Health Care Decision (hx) 09/09/2018 AD JACK DIRECTIVE Health Care Decision (hx) 09/09/2018 AD JACK DIRECTIVE Health Care Decision (hx) 09/09/2018 AD JACK DIRECTIVE Health Care Decision (hx) 09/09/2018 AD JACK DIRECTIVE Health Care Decision (hx) 09/09/2018 AD JACK DIRECTIVE Health Care Decision (hx) 09/09/2018 AD JACK DIRECTIVE Health Care Decision (hx) 09/09/2018 AD JACK DIRECTIVE Health Care Decision (hx) 09/09/2018 AD JACK DIRECTIVE Health Care Decision (hx) 09/09/2018 AD JACK DIRECTIVE Health Care Decision (hx) 09/09/2018 AD JACK DIRECTIVE Health Care Decision (hx) 09/09/2018 AD JACK DIRECTIVE Health Care Decision (hx) 09/09/2018 AD JACK DIRECTIVE Health Care Decision (hx) 09/09/2018 AD JACK DIRECTIVE Health Care Decision (hx) 09/09/2018 AD JACK DIRECTIVE Health Care Decision (hx) 09/09/2018 AD JACK DIRECTIVE Health Care Decision (hx) 09/09/2018 AD JACK DIRECTIVE Health Care Decision (hx) 09/09/2018 AD JACK DIRECTIVE Health Care Decision (hx) 09/09/2018 AD JACK DIRECTIVE Care Teams Outreach Nurse Relationship Specialty Start Date End Date Donal Jackson MD [address] [place] [id number] PCP - General Internal Medicine 05/25/18
== END 2024-07-05 11:00 | disposition home or self-care (01) ==
PROVIDERS: PCP Internal Medicine; Visit Provider Nurse Practitioner Family
DX: R25.9 Unspecified abnormal involuntary movements (principal); R51.9 Headache, unspecified; R32 Unspecified urinary incontinence; H53.2 Diplopia; R63.4 Abnormal weight loss; R06.02 Shortness of breath
CPT/HCPCS: 99214

== ENCOUNTER 2025-01-09 10:49 | Outpatient (AMB) | payer MEDICARE, MEDICAID, SELFPAY ==
--- OUTSIDE RECORDS SUMMARY | 2011-06-10 20:00 | XMS_ITS | Continuity of Care Document ---
Author Organization [facility] Address [address] [place] [phone] Phone Care Team Providers Care Garnetter Name Role Phone Unavailable Unavailable Unavailable Results Test Name Date and Time Measure Units Reference Range Abnormal Flag Status Commen ts Panel Description: Not Available Final Final Final Advance Directives Directive Yes / No Effective Date File Name No Information Encounters Encounter Description Practice Location Reason(s) For Visit Diagnoses Date Provider Providers Copied on Encounter [facility], [address] [place] [address], [id number], [place] tel:[phone] [facility] No Information No Information Family History Family Member Type Diagnosis Age At Onset No Information Payers Payer name Insurance type Covered libertarian ID Authoriza tion(s) No Information Social History Type Description Quantity Date Captured Comments Sex Male Smoking Status No Information Chief Complaint And Reason For Visit No Information Reason For Referral Reason For Referral No Information History Of Present Illness Encounter Date Complaint History Of Prese nt Illness No Information Functional Status Date Functional Assessmen t No Information Instructions Date Instruction Additional Infor mation No Information Assessments Type Assessment Date No Information Patient Care Teams Name Effective Dates (start - stop) Status Members No Information
--- OUTSIDE RECORDS SUMMARY | 2024-10-20 07:30 | XMS_ITS ---
Author Organization [facility] Address [address] [place] [address] Care Team Providers Care Clinical Services Professional Name Role Phone Donal Jackson Primary Care Provider Lupe Bruno [phone] Encounters Encounter Location Date Provider Diagnosis [address] [address] 10/20/2024 Lupe Navarro Plan Of Treatment Next Appt Details Provider Name:Lupe haywood, 03/28/2025 02:30:00 PM, [address] [place], [address], Progress Notes * Nicolas YOUSIF DDOB:1959 (64 yo M)Acc No.[id number]:10/20/2024 Progress Note Patient: Lisa Nicolas ZHONG Provider: Kimber Navarro DPM :1960 A ge:64 Y S ex:Male Date:10/20/2024 Address:[address] [place] [address], [facility] Pcp:Donal Jackson Subjective: * Chief Complaints: * * Medical History: Objective: * Vitals: Assessment: Plan: * Treatment: * Images: * The named appointment provid er may or may not be the originator of this progress note, and it is not deemed complete until electronically signed by the appointment provider. Sign off status: Pending * Provider: Kimber Navarro DPM Date: 0 10/20/2024 Generated for Blaise harley/Roberth/Getitting on: 0 01/09/2025 12:03 PM EDT
--- NOTE | 2025-01-09 10:51 | A.OFFVIS_ITS ---
Vital Signs 01/09/25 10:52 Height 5 ft 8 in Weight 184 lb 6 oz BMI 28.0 BP 124/80 Blood Pressure Location Rt brachial Position Sitting Pulse 50 Pulse Source Pulse Oximeter Pulse Oximetry (%) 98 Oxygen Delivery Method Room Air Intake Visit Reasons: 6 mo follow up Intake Note: Patient presents 6 month follow up for headaches/abnormal invo. mov. Radiology Equipment Servicer Required: No Accompanied by: staff Allergies No Known Allergies (No Known Allergies*) Allergy (Verified 01/09/25 10:51) Medication List - Last Reconciled 01/09/25 by DAVID Olmedo acetaminophen (Tylenol) 325 mg PO QID PRN albuterol sulfate 90 mcg/actuation 2 puffs inhalation Q6H PRN albuterol sulfate 90 mcg/actuation (ProAir HFA) 1 inh inhalation QID amlodipine 10 mg PO DAILY apixaban (Eliquis) 5 mg PO BID benztropine 0.5 mg PO BID 28 days budesonide-formoterol 160-4.5 mcg/actuation (Symbicort) 1 inh inhalation BID clotrimazole-betamethasone 1-0.05 % 1 appl topical BID diclofenac potassium 50 mg PO BID fluticasone furoate-vilanterol 50-25 mcg/dose (Breo Ellipta) inhalation hydrocortisone 2.5% 1 appl topical BID PRN lisinopril 20 mg PO DAILY magnesium oxide 400 mg PO BEDTIME 30 days omeprazole 20 mg PO DAILY ondansetron HCl 4 mg PO Q8H pantoprazole DR 40 mg PO DAILY potassium chloride ER 20 mEq PO DAILY propranolol 10 mg PO BID 28 days riboflavin (vitamin B2) 400 mg PO DAILY 30 days risperidone (Risperdal) 1 mg PO BEDTIME sertraline 50 mg PO DAILY sertraline 100 mg PO DAILY tamsulosin 0.4 mg PO BEDTIME zinc oxide 13% (Desitin Daily Defense) 1 appl topical BID-QID PRN HPI Comments Details: 64-yr-old male presents for f/u of movement d/o. Patient accompanied by his skilled nursing staff, Aura. Since the last visit, the patient has reestablished care with Oncology, Dr Canales. He underwent abdominal CT, which showed an increased right renal cell mass. Then underwent follow-up right renal mass biopsy- results of which are not available to me today. Patient has done to established care with a urologist- possibly [facility]. Since the last visit, he has gained some weight back. He can still be shaky at times, more so when focusing on something or trying to pick something up. The tremor does not interfere with his ability to eat or do his ADLs. Denies orthostatic lightheadedness. Denies any recent falls. He feels his gait is stable/steady when he uses his walker. Patient states he may forget names, but knows faces. care home staff note that sometimes he may start talking about something that does not make sense for the current conversation. He states he has occasional brief headaches- when she wakes up with- that self- resolve. He is not sure if he is still having diplopia with his headaches. Denies associated light sensitivity, or sound sensitivity. Not using Tylenol, states he does not need it now. Staff reports he continues to have nocturnal urinary incontinence and bowel incontinence, states he wakes up and just does not have enough time to reach the bathroom. He endorses nocturia, typically 2-3 times per night. Endorses talking and sleeping at night. He states he had a sleep study several years ago, which did not show sleep apnea [facility] Medical History (Updated 01/09/25 @ 12:58 by DAVID Olmedo) History of lung cancer Anemia JACQUELYN on CPAP Family History Mother Cancer Social History Alcohol intake: never Patient Tobacco Use Status: Never used Tobacco Physical Exam Vital Signs: Last Vital Signs Pulse 50 01/09/25 10:52 BP 124/80 01/09/25 10:52 Pulse Ox 98 01/09/25 10:52 Oxygen Delivery Method Room Air 01/09/25 10:52 BMI result Body Mass Index 28.0 Const General: cooperative and no acute distress Resp Effort & Inspection: normal respiratory effort and able to speak in complete sentences Neuro Other: Cognition- A&O, developmental delay, responds appropriately, some STM and LTM lapses. Mild involuntary periorbital movements BUE mild postural and kinetic tremor. Fine finger movements- BUE decreased more so on left BUE rigidity. Foot taps- BUE decreased more so on left Gait- stands easily, good posture, wide based, short steps, steady w/ 4 wheeled walker. 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 Code(s): R25.9 - Unspecified abnormal involuntary movements Category: Medical (2) Headache: Code(s): R51.9 - Headache, unspecified Category: Medical Qualifiers: Headache type: unspecified Headache chronicity pattern: episodic headache Intractability: not intractable Qualified Code(s): R51.9 - Headache, unspecified (3) Urinary incontinence: Code(s): R32 - Unspecified urinary incontinence Category: Medical Qualifiers: Urinary Incontinence type: unspecified incontinence Qualified Code(s): R32 - Unspecified urinary incontinence (4) Diplopia: Code(s): H53.2 - Diplopia Category: Medical (5) Unintentional weight loss: Code(s): R63.4 - Abnormal weight loss Category: Medical (6) Cognitive decline: Code(s): R41.89 - Other symptoms and signs involving cognitive functions and awareness Category: Medical Plan Patient is again advised to undergo Brain MRI with and without contrast to assess for secondary etiologies of worsening cognition, headaches, urinary incontinence, in setting of history of lung cancer Continue riboflavin 400 mg q.a.m. and magnesium oxide 400 mg q.h.s. for headache prevention. May continue Tylenol 650-1000 mg every 4-6 hours as needed. Avoid NSAIDs due to Eliquis use. Future considerations: Follow-up sleep study For tremor, gait difficulties, and history of falls: Continue using walker. Continue propranolol 10 mg b.i.d.. Continue Cogentin 0.5 mg b.i.d.. Future considerations: Carbidopa levodopa trial, DaTscan Will follow-up upon review of above and patient to follow-up in clinic in 6 months or sooner prn. Orders: Orders MR head/brain wo/w con Today H53.2 - Diplopia, R25.9 - Unspecified abnormal involuntary movements, R41.89 - Other symptoms and signs involving cognitive functions and awareness, R51.9 - Headache, unspecified, Z85.118 - Personal history of other malignant neoplasm of bronchus and lung Coding Level of Care Code Est Pt Level 4 (51105) Diagnoses Abnormal involuntary movement R25.9 Nonintractable episodic headache, unspecified headache type R51.9 Headache type: unspecified Headache chronicity pattern: episodic headache Intractability: not intractable Urinary incontinence, unspecified type R32 Urinary Incontinence type: unspecified incontinence Diplopia H53.2 Unintentional weight loss R63.4 Cognitive decline R41.89
[2025-01-09 10:52] VITALS: BP 124/80; PULSE 50; O2SAT 98; BMI 28.0
--- OUTSIDE RECORDS SUMMARY | 2025-01-09 12:02 | XMS_ITS | Clinical Summary ---
Author Organization [facility] Address [address] [place] [address] Phone Care Team Providers Care Windscreen Fitter Name Role Phone Donal Jackson MD Primary Care Provider [phone] Allergies No known active allergies Medications acetaminophen (TYLENOL 8 HOUR) 650 mg 8 hr tablet Take 650 mg by mouth every 8 hours as needed. Active amLODIPine (NORVASC) 10 mg tablet Take 10 mg by mouth daily. Active apixaban (ELIQUIS) 5 mg tablet Apixaban 5 MG Tab Take by mouth 2 times daily Active atorvastatin (LIPITOR) 20 mg tablet Take 20 mg by mouth daily. Active benztropine (COGENTIN) 0.5 mg tablet Take 0.5 mg by mouth 2 times daily. Active BETAMETHASONE ORAL BETAMETHASONE OR 2 times daily. For dermatitis/eczema , topically Active guaiFENesin (HUMIBID 3) 400 mg tablet Take 400 mg by mouth. Active hydrocortisone 2.5 % cream Apply topically 2 times daily. Active ketoconazole (NIZORAL) 2 % cream Apply topically 2 times daily. Active lisinopril-hydroCH LOROthiazide (PRINZIDE,ZESTORET IC) 20-12.5 mg per tablet Take 1 Tablet by mouth 2 times daily. Active magnesium hydroxide (MILK OF MAGNESIA ORAL) Magnesium Hydroxide (MILK OF MAGNESIA OR) Take by mouth Active neomycin/bacitraci n/polymyxinB (NEOMYCIN-BACITRAC IN-POLYMYXIN TOP) Neomycin-Bacitrac in-Polymyxin (HCA TRIPLE ANTIBIOTIC OINTMENT EX) Apply topically Active ondansetron ODT (ZOFRAN-ODT) 4 mg disintegrating tablet ondansetron (ZOFRAN-ODT) 4 MG disintegrating tablet Take 4 mg by mouth every 8 hours as needed Active pantoprazole (PROTONIX) 40 mg EC tablet pantoprazole (PROTONIX) 40 MG tablet Take 40 mg by mouth every morning (before breakfast Active propranoloL (INDERAL) 20 mg tablet Take 20 mg by mouth daily. Active pyrithione zinc (Dandruff Shampoo, pyrithione,) 1 % shampoo pyrithione zinc (HEAD AND SHOULDERS) 1 % shampoo Apply topically four times a week. Use 4 times weekly Active risperiDONE (RisperDAL) 0.5 mg tablet Take 1 Tablet by mouth 2 times daily. Active risperiDONE (RisperDAL) 1 mg tablet Take 1.5 mg by mouth at bedtime. Active sertraline (ZOLOFT) 100 mg tablet Take 100 mg by mouth daily. Active sertraline (ZOLOFT) 50 mg tablet Take 50 mg by mouth daily. Active tamsulosin (FLOMAX) 0.4 mg 24 hr capsule Take 0.4 mg by mouth daily. Take 30 mins after same meal every day. Active tiotropium (Spiriva Respimat) 2.5 mcg/actuation inhalation spray Tiotropium Strunk Monohydrate 2.5 MCG/ACT Aero Soln Inhale into the lungs Active zinc oxide 13 % cream Apply topically. Act martin fluticasone furoate-vilanteroL (BREO ELLIPTA) 100-25 mcg/dose inhaler Inhale 1 puff by mouth 1 (one) time each day. 3 each 4 10/28/19 25 026 Active Active Problems Problem Noted Date Diagnosed Date Diarrhea 06/02/2018 Esophageal reflux 06/02/2018 Hypertension 06/02/2018 Rectal bleeding 06/02/2018 Encounters Date Type Department Care Team Description 12/22/2024 Lab Requisition [facility] - Main Lab [address] [place] [address] Jorgito Aldana PA Urinary tract infection, site not specified 11/16/2024 Telephone Pulmonol - [place] [address] [place] [phone] Servando Chen MD Forms/questionnaires from Last 3 Months Surgical History Surgery Date Site/Laterality Comments OTHER SURGICAL HISTORY 09/09/2018 Right PROCEDURE: ID RMVL LUNG OTHER/THAN PNUMEC COMPLETION PNUMEC; COMMENT: VATS bilobectomy, RML, RLL Medical History Medical History Date Comments History of lung cancer DX:Histor y of lung cancer Rectal bleeding DX:Rectal bleedi ng Giardiasis DX:Giardiasis Esophageal reflux DX:Esophageal reflux Essential (primary) hypertension DX:Essential (primary) hypertension Social History Tobacco Use Types Packs/Day Years Used Date Smoking Tobacco: Never Smokeless Tobacco: Never Tobacco Cessation:Counseling Given: Not Answered Alcohol Use Standard Drinks/Week Comments No 0 [...] Sign Reading Time Taken Comments Blood Pressure 156/89 09/20/2024 11:46 AM EDT Pulse 51 09/20/2024 11:46 AM EDT Temperature 36.7 C (98.1 F) 09/20/2024 9:06 AM EDT Respiratory Rate 16 09/20/2024 11:46 AM EDT Oxygen Saturation 98% 09/20/2024 10:46 AM EDT Inhaled Oxygen Concentration - - Weight 80.3 kg (177 lb) 09/20/2024 9:05 AM EDT Height 172.7 cm (5' 8 ) 09/20/2024 9:05 AM EDT Body Mass Index 26.91 09/20/2024 9:05 AM EDT Plan of Treatment Upcoming Encounters Date Type Department Care Team (Late st Contact Info) Description 04/20/2025 10:15 AM EST Office Visit [facility] Hematology Oncology [address] [place] [phone] Juvenal Canales MD [address] [place] [address] Health Maintenance Due Date Last Done Comments Diabetes: Annual Foot Exam 1971 Diabetes: Annual Retina Eye Exam 1971 Pneumococcal Vaccine: 50+ Years (3 of 3 - PCV) 05/17/2014 05/17/2013, 02/18/2007 RSV Immunization Adult Patients (1 - Risk 60-74 years 1-dose series) 2021 Cholesterol Screening (Lipid Panel) 04/26/2022 HIV Screening 04/26/2022 Hepatitis C Screening 04/26/2022 Medicare Annual Wellness Visit 04/26/2022 Social Influencers of Health Screening 04/26/2022 COVID-19 Vaccine ( season) 2024 02/06/2023, 07/18/2021, 07/13/2020, Additional history exists Depression Screening 05/18/2024 Diabetes: Annual Urine Albumin-Creatinine Ratio (uACR) 08/03/2024 Diabetes: Blood Sugar Control Test (HGBA1C) 08/03/2024 Influenza Vaccine (#1) 2025 , 03/12/2021, 02/07/2020, Additional history exists Diabetes: Annual GFR (Glomerular Filtration Rate) 08/02/2025 08/02/2024 Hypertension/CHF/CAD Annual BMP Blood Test 08/02/2025 08/02/2024 DTaP,Tdap,and Td Vaccines (2 - Td or Tdap) 10/10/2027 10/09/2017 Colorectal Cancer Screening: Colonoscopy 06/18/2028 06/18/2018 Zoster Vaccines Completed 03/13/2020, 05/21/2018 HIB Vaccines Aged Out No longer eligi [...] age to complete this topic Meningococcal B Vaccine Aged Out No l onger eligible based on patient's age to complete this topic RSV Immunization Patients Under 20 months Aged Out No longer eligible based on patient's age to complete this topic Varicella Vaccines Aged Out No longer eligible based on patient's age to complete this topic Medical Devices Implanted Type Area Screen Printing Machine Loader Unloader Device Identifier Shelf Expiration Date Model / Serial / Lot Sponge Surgifoam Gel 12 X 7mm - [id number] - [id number] Implanted:Qty: 1 on 09/20/2024 by Doyle Dugan MD at [facility] Hemostasis Right: Flank [employer] [id number] 04/14/2028 1972 / [id number] / Procedures Procedure Name Priority Date/Time Associated Diagnosis Comments CULTURE URINE Routine 12/22/2024 12:00 AM EDT Urinary tract infection, site not specified COMPREHENSIVE METABOLIC PANEL Routine 08/02/2024 2:54 PM EDT Carcinoid tumor of lung, unspecified whether malignant (CMS/HCC V28) Abnormal weight loss COLONOSCOPY Routine 06/18/2018 from Last 3 Months or Most Recently Relevant to Health Maintenance Results * Culture urine (12/22/2024 12:00 AM EDT) Pathologist [facility] Culture, Urine <10,000 cfu/ml, insignificant count, no further workup. 12/23/2024 2:35 PM EDT [facility] Urine Urine specimen obtained by clean catch procedure / Unknown 12/22/2024 12/22/2024 6:00 PM EDT [facility] Katya VALLADARES LAB MICROBIOLOGY - GENERAL ORDE MICHAEL Final Result [facility] [address] [place] [address], * (ABNORMAL) Comprehensive metabolic panel (08/02/2024 2:54 PM EDT) Pathologist [facility] Sodium 143 133 - 145 mmol/L LAB CHEMISTRY METHOD 08/02/2024 4:53 PM [facility] Potassium 3.0(L) 3.5 - 5.5 mmol/L LAB CHEMISTRY METHOD 08/02/2024 4:53 PM [facility] Chloride 106 96 - 110 mmol/L LAB CHEMISTRY METHOD 08/02/2024 4:53 PM [facility] CO2 31 21 - 32 mmol/L LAB CHEMISTRY METHOD 08/02/2024 4:53 PM [facility] Anion Gap 6 3 - 11 LAB CHEMISTRY METHOD 08/02/2024 4:53 PM [facility] Glucose 79 70 - 100 mg/dL LAB CHEMISTRY METHOD 08/02/2024 4:53 PM [facility] BUN 21 5 - 25 mg/dL LAB CHEMISTRY METHOD 08/02/2024 4:53 PM [facility] Creatinine 1.16 0.70 - 1.30 mg/dL LAB CHEMISTRY METHOD 08/02/2024 4:53 PM [facility] eGFR 71 >=60 mL/min/1. 73m2 LAB CHEMISTRY METHOD 08/02/2024 4:53 PM [facility] Comment:Calculation based on the Chronic Kidney Disease Epidemiology Collaboration (CKD-EPI) equation refit without adjustment for race. BUN/Creatinine Ratio 18.1 LAB CHEMISTRY METHOD 08/02/2024 4:53 PM [facility] Calcium 8.7 8.5 - 10.5 mg/dL LAB CHEMISTRY METHOD 08/02/2024 4:53 PM [facility] AST (SGOT) 16 10 - 42 unit/L LAB CHEMISTRY METHOD 08/02/2024 4:53 PM [facility] ALT (SGPT) 15 10 - 60 unit/L LAB CHEMISTRY METHOD 08/02/2024 4:53 PM [facility] Alkaline Phosphatase 105 42 - 121 unit/L LAB CHEMISTRY METHOD 08/02/2024 4:53 PM EDT [facility] Total Protein 6.9 6.0 - 8.0 g/dL LAB CHEMISTRY METHOD 08/02/2024 4:53 PM EDT [facility] Albumin 3.5 3.2 - 5.0 g/dL LAB CHEMISTRY METHOD 08/02/2024 4:53 PM EDT [facility] Total Bilirubin 0.4 0.0 - 1.4 mg/dL LAB CHEMISTRY METHOD 08/02/2024 4:53 PM EDT [facility] Blood Venous blood specimen / Unknown Venipuncture / Unknown 08/02/2024 2:54 PM EDT 08/02/2024 4:30 PM EDT Juvenal Canales MD LAB BLOOD ORDERABLES Final R esult [facility] [address] [place] [address], * Colonoscopy (06/18/2018) Colonoscopy normal, abstracted Anatomical Region Laterality Modality Other Historical Provider HEALTH MAINTENANCE Final Result from Last 3 Months or Most Recently Relevant to Health Maintenance Insurance MEDICARE [place]ICAID - [place] Advance Directives Documents on File Type Date Recorded Patient Spreader Expl anation Health Care Decision (hx) 09/14/2018 [...] (hx) 09/09/2018 AD JACK DIRECTIVE Care Teams Windscreen Fitter Relationship Specialty Start Date End Date Donal Jackson MD [address] [place] [phone] PCP - General Internal Medicine 09/20/24
== END 2025-01-09 11:50 | disposition home or self-care (01) ==
LOC: HO.HSMS 10:50
PROVIDERS: PCP Internal Medicine; Visit Provider Nurse Practitioner Family
DX: R25.9 Unspecified abnormal involuntary movements (principal); R51.9 Headache, unspecified; R32 Unspecified urinary incontinence; H53.2 Diplopia; R63.4 Abnormal weight loss; R41.89 Other symptoms and signs involving cognitive functions and awareness
CPT/HCPCS: 99214

== ENCOUNTER → 2025-01-09 10:49 | Outpatient (BNVA) | payer MEDICARE, MEDICAID, SELFPAY | PROVIDERS: PCP Internal Medicine; Visit Provider Nurse Practitioner Family | DX: R25.9 Unspecified abnormal involuntary movements (principal); R51.9 Headache, unspecified; R32 Unspecified urinary incontinence; R63.4 Abnormal weight loss; R41.89 Other symptoms and signs involving cognitive functions and awareness; H53.2 Diplopia | CPT/HCPCS: 99212 ==